=== PATIENT | female | born 1935 | race Caucasian/White ===

== ENCOUNTER 2018-09-30 15:45 | Inpatient (IN) | payer MEDICARE, MEDICAID ==
[~2018-09-30] VITALS: Ht 162.5 cm; Wt 73.5 kg
--- NOTE | ~2018-09-30 | PR ---
[place], [place] PROGRESS NOTE NAME: PARVEEN SAMPSON UNIT #: [id number] ROOM: 315 DOCTOR: CELSA SEALS MD BIRTHDATE: [birth year] DOS: 10/06/2018 CHIEF COMPLAINT: "Oh, Hi there! I'm feeling well, thank you." SUMMARY OF THE VISIT: The patient was interviewed at the dining table. She had already eaten her breakfast and was sitting there with several female peers. She stopped and engaged in conversation with me very readily, smiling as I approached, and stating that she is feeling well, that she is sleeping well, eating well and notes no problems. She was pleasant for the most part. I also did not see any sedation, somnolence, extrapyramidal symptoms or tardive dyskinesia. MENTAL STATUS: She remains alert and oriented to self, possibly place, not to time. Mood does seem to be euthymic. Affect more appropriate. There is no kang, hypomania or psychosis noted. Short term memory remains problematic. PLAN: I will maintain her current psychotropic regimen, continue to engage her in individual and dale milieu activity, returning her then to the least restrictive environment when psychiatrically stable. CELSA SEALS MD CM:PNTRANS [phone] CELSA SEALS MD 10/07/18 0001 interface
--- NOTE | ~2018-09-30 | PR ---
[place], [place] PROGRESS NOTE NAME: PARVEEN SAMPSON UNIT #: [id number] ROOM: 315 DOCTOR: CELSA SEALS MD BIRTHDATE: [birth year] DOS: 10/05/2018 CHIEF COMPLAINT: "Good morning." SUMMARY OF THE VISIT: The patient was interviewed as she was resting in bed. She was lying there with her eyes closed, but when I called her name, she opened her eyes and engaged in brief superficial conversation, reporting no problems, having reported good sleep and good appetite. Otherwise, she was pleasantly confused. Nursing staff and aids note that the patient does have a chipped tooth. MENTAL STATUS: She is alert and oriented to person, possibly place, although that is doubtful, not to time. Mood does seem to be trending more towards euthymia. Affect is more appropriate. There is no kang, hypomania or psychosis. Short term memory remains poor. No tardive dyskinesia, extrapyramidal symptoms, sedation or somnolence persist. PLAN: I will maintain her current psychotropic regimen, continue to engage in individual and dale milieu activity with the plan to return to the least restrictive environment. We will also obtain a dental consult to evaluate the broken tooth. CELSA SEALS MD CM:PNTRANS [id number] CELSA SEALS MD 10/06/18 0024 interface
--- NOTE | ~2018-09-30 | PR ---
[place], [place] PROGRESS NOTE NAME: PARVEEN SAMPSON UNIT #: [id number] ROOM: 315 DOCTOR: CELSA SEALS MD BIRTHDATE: [birth year] DOS: 10/10/2018 INTERVAL NOTE CHIEF COMPLAINT: "Oh, is it morning now?" SUMMARY OF THE VISIT: The patient was interviewed as she was resting quietly in her bed. She engaged readily in brief conversation, smiling as I approached. She voiced no complaints, did state that she was ready to get up having slept well and is ready for breakfast. MENTAL STATUS: She is alert and oriented to person, possibly place, although this seems to be evident at this time, not to time. Mood does seem to be more euthymic. She is less fretful, less anxious and less labile. Overall, she is tolerating the medicines well and I see no tardive dyskinesia, extrapyramidal symptoms, sedation or somnolence. Short-term memory continues to have gaps. PLAN: I will maintain her current psychotropic regimen, continue to engage in individual and dale milieu activity with the plan to return to the least restrictive environment when psychiatrically stable. CELSA SEALS MD CM:PNTRANS [id number] CELSA SEALS MD 10/10/18 1451 interface
--- NOTE | ~2018-09-30 | PR ---
[place], [place] PROGRESS NOTE NAME: PARVEEN SAMPSON UNIT #: [id number] ROOM: 315 DOCTOR: GAURAV WORKMAN CNP BIRTHDATE: [birth year] DOS: 10/04/2018 CHIEF COMPLAINT: "We are jeffery that we do not know what we are saying." SUMMARY OF VISIT: The patient was interviewed as she sat in the group room, interacting with her peer. She engaged readily in conversation with me. The patient reports that she slept well and that she is happy. Her appetite is good. Staff reports that the patient has been euphoric and has exhibited no behaviors. She has been cooperative. MENTAL STATUS EXAMINATION: The patient is alert and oriented to herself. No overt kang or hypomania noted. She is pleasant and cooperative. No delusions or paranoia noted. No psychotic symptoms noted. No auditory or visual hallucinations noted. Her mood is euthymic. Affect is appropriate. PLAN: We will continue the patient's medications as prescribed. Continue to monitor for any side effects. Continue to encourage the patient to engage in individual and dale milieu activity. Continue fall and safety precautions. Plan is to return the patient to the least restrictive environment when she is considered psychiatrically stable. Gaurav Workman CNP CM:PNTRANS [phone] GAURAV WORKMAN CNP 10/04/18 2250 interface
--- NOTE | ~2018-09-30 | PR ---
[place], [place] PROGRESS NOTE NAME: PARVEEN SAMPSON UNIT #: [id number] ROOM: 315 DOCTOR: CELSA SEALS MD BIRTHDATE: [birth year] DOS: 10/09/2018 CHIEF COMPLAINT: "Oh Hi there." SUMMARY OF THE VISIT: The patient was interviewed as she was sitting, reading a book. She had already completed her breakfast. As I approached, she smiled readily and reached over to touch my hand. She voiced no complaints, stating that she is feeling well. She is sleeping better and eating well. Nurses do report some sundowning behavior in the evening, but is at this point, redirectable. We will monitor this closely over the weekend to see if we need to treat, so that we can make her transition back into long-term care successful. MENTAL STATUS: The patient is alert and oriented to person, place, but not to time. Mood does seem to be trending towards euthymia. Affect is more appropriate. There is no kang, hypomania or psychosis. She does process conversation slowly and short term memory continues to be problematic. PLAN: I will maintain her current psychotropic regimen, engage in individual and dale milieu activity, returning to the least restrictive environment when stable. CELSA SEALS MD CM:PNTRANS [id number] CELSA SEALS MD 10/09/18 1342 interface
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
--- NOTE | ~2018-09-30 | PR ---
[place], [place] PROGRESS NOTE NAME: PARVEEN SAMPSON UNIT #: [id number] ROOM: 315 DOCTOR: GAURAV WORKMAN CNP BIRTHDATE: [birth year] DOS: 10/03/2018 CHIEF COMPLAINT: "I'm just fine." SUMMARY OF VISIT: The patient was interviewed as she sat in the dining room, participating in activities. She reports that she slept well and that she enjoyed her breakfast. Staff reports that the patient continues to be combative at times followed by episodes of being pleasant due to increased agitation. She did have to be medicated with p.r.n. Ativan twice yesterday. MENTAL STATUS EXAMINATION: The patient is alert and oriented to herself. She was pleasant and cooperative with me. No overt kang or hypomania noted. No delusions or paranoia noted. No psychotic symptoms noted. No auditory or visual hallucinations noted. Her mood was calm. No agitation or aggression noted. Affect was congruent with mood. Short and long-term memory is somewhat impaired. PLAN: The patient's Neurontin level is still pending. I will increase Invega to 6 mg a day to try to decrease the agitation. We will monitor for effectiveness and side effects of the medication. Encourage the patient to continue participating in dale and milieu activity. Continue fall and safety precautions. Plan is to return the patient to the least restrictive environment when she is considered psychiatrically stable. Gaurav Workman CNP CM:PNTRANS [phone] GAURAV WORKMAN CNP 10/03/18 181 interface
--- NOTE | ~2018-09-30 | PR ---
[place], [place] PROGRESS NOTE NAME: PARVEEN SAMPSON UNIT #: [id number] ROOM: 315 DOCTOR: CELSA SEALS MD BIRTHDATE: [birth year] DOS: 10/11/2018 CHIEF COMPLAINT: "Oh, hi there honey." SUMMARY OF THE VISIT: The patient was interviewed in the dining area where she was sitting with some female peers, engaging in pleasant conversation. She smiled readily as I approached and greeted me appropriately. She voiced no complaints otherwise. She reports good sleep and appetite and is anxious to be able to start thinking about going home. MENTAL STATUS: She is alert and oriented to person, possibly place, not to time. Mood does seem to be trending towards euthymia. Affect is more appropriate. There is no kang or hypomania. There are no gross psychotic symptoms. Short term memory remains very poor. PLAN: I will maintain her current psychotropic regimen. I will order Ativan p.r.n., should she require intervention. Engage in individual and dale milieu activity, returning to the least restrictive environment when stable. CELSA SEALS MD CM:PNTRANS [phone] CELSA SEALS MD 10/12/18 0030 interface
--- NOTE | ~2018-09-30 | PR ---
[place], [place] PROGRESS NOTE NAME: PARVEEN SAMPSON UNIT #: [id number] ROOM: 315 DOCTOR: CELSA SEALS MD BIRTHDATE: [birth year] DOS: 10/13/2018 INTERVAL NOTE CHIEF COMPLAINT: "Oh, "I didn't sleep at all last night, doctor." SUMMARY OF THE VISIT: The patient was interviewed as she was sitting quietly in the dining room. She was much more subdued than she had been previously where she has been very animated. She did very quickly state that she did not sleep and is feeling very tired. She could not state any reason why she did not sleep, but just stated that she was unable to. We discussed me adding a sleeping agent and she nodded in approval. MENTAL STATUS: She is alert and oriented to person, possibly place, not to time. Mood does seem to be relatively euthymic. Affect is appropriate. There is no kang or hypomania noted. There are no auditory or visual hallucinations. No delusions, no paranoia. Short-term memory is poor. PLAN: I will add Rozerem 8 mg at bedtime straight in order to aid sleep with a non-addicting sleep aid. We will monitor and support. CELSA SEALS MD CM:PNTRANS [id number] CELSA SEALS MD 10/13/18 1631 interface
--- NOTE | ~2018-09-30 | PR ---
[place], [place] PROGRESS NOTE NAME: PARVEEN SAMPSON UNIT #: [id number] ROOM: 315 DOCTOR: CELSA SEALS MD BIRTHDATE: [birth year] DOS: 10/02/2018 INTERVAL NOTE CHIEF COMPLAINT: "Oh, "I am just fine doctor, thank you for asking." SUMMARY OF THE VISIT: The patient was interviewed as she was sitting with many peers at the dining table. She stopped and engaged in bright, pleasant conversation with me. She remains pleasantly confused. There was no agitation or aggression, no mood lability noted and she seems to be tolerating the current medication regimen well without sedation or somnolence. There is no tardive dyskinesia or extrapyramidal symptoms as well. MENTAL STATUS: She remains alert and oriented to person, unclear place, certainly not time. Mood does seem to be trending towards euthymia. Affect is more appropriate. There is no kang or hypomania noted. There are no gross psychotic symptoms noted. Short term memory is very problematic and she has a great deal of processing difficulty. PLAN: I will check a Neurontin level in the a.m. to ensure that it is therapeutic. I will discontinue her straight hydroxyzine at this point to simplify her drug regimen, engage in individual and dale milieu activity, returning to the least restrictive environment when psychiatrically stable. CELSA SEALS MD CM:PNTRANS [phone] CELSA SEALS MD 10/02/182009 interface
--- NOTE | ~2018-09-30 | PR ---
[place], [place] PROGRESS NOTE NAME: PARVEEN SAMPSON UNIT #: [id number] ROOM: 315 DOCTOR: CELSA SEALS MD BIRTHDATE: [birth year] DOS: 10/12/2018 CHIEF COMPLAINT: "Oh, good morning, thank you for breakfast." SUMMARY OF THE VISIT: The patient was interviewed. She was eating breakfast. The aide next to her said that this was her second helping. She smiled and joked with me as I approached. She offered no other complaints. She was alert and bright. There was no sedation or somnolence noted. MENTAL STATUS: She is alert and oriented to person, place, but not time. Mood seems to be strongly trending towards euthymia. Affect is much more appropriate. There is no kang, hypomania or psychosis. Short term memory continues to have gaps, otherwise she is intact. PLAN: I will go ahead and maintain her current psychotropic regimen, engage in individual and dale milieu activity, returning to the least restrictive environment when psychiatrically stable. CELSA SEALS MD CM:PNTRANS [phone] CELSA SEALS MD 10/12/18 2213 interface
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
--- NOTE | ~2018-09-30 | PR ---
[place], [place] PROGRESS NOTE NAME: PARVEEN SAMPSON UNIT #: [id number] ROOM: 315 DOCTOR: CELSA SEALS MD BIRTHDATE: [birth year] DOS: 10/07/2018 CHIEF COMPLAINT: "Oh, when do I get to go home." SUMMARY OF THE VISIT: The patient was interviewed in the dining area where she was sitting with many female peers. She smiled as I approached and engaged readily in conversation. She was even spontaneous with me as I approached, wishing me a good morning. She reports that she is sleeping well and feeling better. Nurses report that overall she has a good day, but by midday, she starts complaining consistently of significant low back pain. The Lidoderm patch does not seem to be effective at relieving her pain. There has been no agitation or aggression and minimal mood lability noted. MENTAL STATUS: She is alert and oriented to person, place, not to time. Mood does seem to be more euthymic. Affect is more appropriate. There is no kang or hypomania. No gross psychosis. Short term memory continues to be problematic. PLAN: I will discontinue her Lidoderm patch in lieu of Zostrix high potency cream t.i.d. I will lower her Invega from 6 to 3 mg in the morning. Given the fact that she does seem to be improved, I want to limit the possibility of her developing any extrapyramidal symptoms or tardive dyskinesia. We will monitor and support. CELSA SEALS MD CM:PNTRANS 0 30 CELSA SEALS MD 10/07/182129 interface
--- NOTE | ~2018-09-30 | PR ---
[place], [place] PROGRESS NOTE NAME: PARVEEN SAMPSON UNIT #: [id number] ROOM: 315 DOCTOR: CELSA SEALS MD BIRTHDATE: [birth year] DOS: 10/08/2018 CHIEF COMPLAINT: "Oh, I am fine, thank you, honey." SUMMARY OF THE VISIT: The patient was interviewed as she had just finished her breakfast. She engaged readily in conversation. She reported the breakfast was good. She slept well and overall she has been pleasantly confused. Her agitation and aggression that was so prevalent early on seems to have dissipated. MENTAL STATUS: She is alert and oriented to person, possibly place, not to time. Mood does seem to be trending towards euthymia. Affect is more appropriate. There is no kang, hypomania or psychosis. Short term memory remains very problematic. PLAN: I will continue her current psychotropic regimen, engage in individual and dale milieu activity, returning to the least restrictive environment when stable. CELSA SEALS MD CM:PNTRANS [id number] [id number] CELSA SEALS MD 10/08/18 1048 interface
--- NOTE | ~2018-09-30 | PR ---
[place], [place] PROGRESS NOTE NAME: PARVEEN SAMPSON UNIT #: [id number] ROOM: 315 DOCTOR: CELSA SEALS MD BIRTHDATE: [birth year] DOS: 10/15/2018 INTERVAL NOTE CHIEF COMPLAINT: "Oh, hi there honey." SUMMARY OF THE VISIT: The patient was interviewed as she was finishing her breakfast. She engaged readily in conversation. She voiced no complaint this morning. She smiled readily and overall was pleasant and cooperative. Her responses still tend to be short, simple, at times inappropriate, but she smiled readily. MENTAL STATUS: She is alert and oriented to person, most likely place, not to time. Mood does seem to be trending towards euthymia. Affect is more appropriate. There is no kang, hypomania or psychosis. She does process conversation slowly and short-term memory continues to be problematic. PLAN: I will maintain her current psychotropic regimen, continue to engage in individual and dale milieu activity, returning to the least restrictive environment when psychiatrically stable. CELSA SEALS MD CM:PNTRANS [id number] CELSA SEALS MD 10/15/18 1419 interface
[2018-09-30] MEDS ORDERED: CYMBALTA60 MG PO (17:49)
[2018-09-30] MEDS ORDERED: MEMANTINE HCL10 MG PO (17:50)
[2018-09-30] MEDS ORDERED: RISPERDAL0.5 MG PO (17:51)
[2018-09-30] MEDS ORDERED: B121000 MCG/1 IM (17:53)
[2018-09-30] MEDS ORDERED: NAPROXEN500 MG PO (17:54)
[2018-09-30] MEDS ORDERED: GLUCOSE33 GM PO (17:55)
[2018-09-30] MEDS ORDERED: VENTOLIN 02.5 MG/3 M INH (17:56)
[2018-09-30] MEDS ORDERED: ALENDRONATE SOD70 M1 PO (17:57)
[2018-09-30] MEDS ORDERED: ASCORBIC ACID500 M2 PO (17:58)
[2018-09-30] MEDS ORDERED: ARTIFICIAL TEAR15 M9 OP (17:58)
[2018-09-30] MEDS ORDERED: ANTACID200 MG PO (18:01)
[2018-09-30] MEDS ORDERED: CLARITIN10 MG PO (18:02)
[2018-09-30] MEDS ORDERED: VITAMIN D350000 UNIT PO (18:02)
[2018-09-30] MEDS ORDERED: ALLERGY MEDICAT25 MG PO (18:04)
[2018-09-30] MEDS ORDERED: ADMELOG100 UNIT/1 SQ (18:05)
[2018-09-30] MEDS ORDERED: HYDROXYZINE HCL25 MG PO (18:06)
[2018-09-30] MEDS ORDERED: LIDODERM1 EACH T (18:06)
[2018-09-30] MEDS ORDERED: MELATONIN10 M2 PO (18:07)
[2018-09-30] MEDS ORDERED: LOSARTAN POTAS100 M1 PO (18:07)
[2018-09-30] MEDS ORDERED: METOPROLOL25 MG PO (18:08)
[2018-09-30] MEDS ORDERED: NEURONTIN400 MG PO (18:09)
[2018-09-30] MEDS ORDERED: NITROGLYCERIN0.4 MG SL (18:10)
[2018-09-30] MEDS ORDERED: NEURONTIN800 MG PO (18:10)
[2018-09-30] MEDS ORDERED: AMLODIPINE BESY10 MG PO (18:11)
[2018-09-30] MEDS ORDERED: PLAVIX75 M1 PO (18:13)
[2018-09-30] MEDS ORDERED: RIVASTIGMINE TAR6 M1 PO (18:14)
[2018-09-30] MEDS ORDERED: PROBIOTIC250 MG PO (18:14)
[2018-09-30] MEDS ORDERED: TRAD5TAB1 PO (18:15)
[2018-09-30] MEDS ORDERED: TRESIBA100 UNIT/1 SQ (18:16)
--- NOTE | 2018-09-30 18:57 | NUR ---
PARVEEN SAMPSON a 82 year old F admitted via wheel chair from the EMERGENCY ROOM as a voluntary BY POA admission. Arrived on unit at 1857. ALLERGIES: HYDROCODONE, LISINOPRIL, SUVOREXANT, DILAUDID, PHENERGAN. Vital signs are: 97.7-88-20-114/60 SPO2 100%RA . The client'S POA VERBALLY CONSENTED TO the following forms with stated understanding: Authorization For The Release of Medical Information, Clothing List, Consent to Voluntary Admission and Hospitalization, Consent and Release Forms/Receipt of Rights, Acknowledgement of Advance Directive Information, Behavioral Health Consent Form, and Informed Consent of Medications. Admitted under the services of Dr. ARNEL MARTINEZ,[facility]. A search was conducted and hazardous articles were removed. Client was oriented to the unit. CARLOS HARMAN
[2018-09-30 19:46] VITALS: BP 114/60
[2018-09-30 20:00] VITALS: BP 114/60
--- NOTE | 2018-09-30 20:23 | NUR ---
DR. WHITTEN ON UNIT AT THIS TIME TO SEE PATIENT, UPDATE PROVIDED.
--- NOTE | 2018-09-30 21:42 | NUR ---
RADIOLOGY ON UNIT TO DO CHEST X-RAY AT THIS TIME. PATIENT TOLERATED PROCEDURE WELL.
--- NOTE | 2018-09-30 22:44 | NUR ---
PER RUKHSANA CARDONA TO CHANGE ROUTINE NEBS TO PRN.
--- NOTE | 2018-10-01 01:10 | NUR ---
P-CONFUSION I-ASSESS ORIENTATION, MOOD, AND BEHAVIOR. REORIENT AND REDIRECT NEEDED. PROVIDE 1:1 FOR PATIENT TO VOICE FEELINGS. ENCOURAGE MEDICATION COMPLIANCE AND EDUCATE. R-PATIENT ALERT TO SELF, CONFUSED IN ALL OTHER AREAS. MOOD HOPELESS/HELPLESS, ANXIOUS AT TIMES. PT UNABLE TO PARTICIPATE IN ADMISSION ASSESSMENT DUE TO COGNITON, INFORMATION PROVIDED FROM FACILITY. PT COOPERATIVE WITH HANDS ON CARE WITH OUT DIFFICULTY. NO AGITATION OR IRRITBILITY NOTED AT THIS TIME. COMPLIANT WITH HS SNACK AND HS MEDICATION PASS, UNABLE TO EDUCATE DUE TO COGNITON. DENIES SI/HI AND HALLUCINATIONS, NO NOTED RESPONDING TO INTERNAL STIMULI. NO PARANOIA/DELUSIONS OBSERVED. NO PHYSICAL COMPLAINTS VOICED. SKIN ASSESSMENT COMPLETED, MULTIPLE SCABBED AREAS OBSERVED AND NAIL DISOCOLORATION ON RIGHT GREAT TOE AND LEFT THIRD GREAT TOE. GAIT STEADY WITH ASSIST, FALL PRECAUTIONS INITATED AND CONTINUED. PATIENT CURRENTLY LAYING DOWN WITH EYES CLOSED, RESPIRATIONS EASY AND REGULAR, NO SIGNS OR SYMPTOMS OF DISTRESS NOTED. P-REORIENT AND REDIRECT NEEDED. PROVIDE 1:1 FOR PATIENT TO VOICE FEELINGS. ENCOURAGE MEDICATION COMPLIANCE. MAINTAIN Q 15 MIN CHECKS.
--- NOTE | 2018-10-01 05:51 | NUR ---
PATIENT OBSERVED ON Q 15 MIN CHECKS TO HAVE SLEPT 6 HOURS WITH NO AWAKENINGS OR SIGNS AND SYMPTOMS OF DISTRESS NOTED.
--- NOTE | 2018-10-01 06:38 | NUR ---
MADE AWARE OF CRITICAL BSG 27 AND PT AWAKE, TALKING, EATING AND DRINKING. STATES CONTINUE TO ENCOURAGE PO INTAKE.
--- NOTE | 2018-10-01 07:01 | NUR ---
BSG RECHECKED, RESULT OF 102. NO SIGNS OR SYMPTOMS OF DISTRESS NOTED.
[2018-10-01 07:32] LABS: THYROID STIM HORMONE (HS) 1.7 uIU/ml (0.358-4.75)
[2018-10-01 07:47] VITALS: BP 133/70
--- NOTE | 2018-10-01 08:15 | NUR ---
Treatment Plan meeting with Dr. Haq, RN, SW and Boring Machine Operator Horizontal. Plan for discharge Next week. Pt. is current resident at [facility]. Will reach out to facility today to discuss discharge Planning.
[2018-10-01 08:34] LABS: VITAMIN D, 25-HYDROXY 26.6 ng/mL (30-100)
--- NOTE | 2018-10-01 08:48 | NUR ---
Nursing screen received and Occupational Therapy referral received. Thank you. Breanna Putnam OTR/l
--- NOTE | 2018-10-01 11:01 | NUR ---
Call Placed to [facility], left voice Message for Cristopher White in admissions to discuss discharge Planning.
--- NOTE | 2018-10-01 11:30 | NUR ---
DR. DIAZ ON UNIT TO ASSESS PATIENT.
--- NOTE | 2018-10-01 13:09 | NUR ---
SPEECH PATHOLOGY Evaluation completed as per orders. Patient was admitted from skilled nursing after experiencing depression, agitation and agression. Medical history is significant for cariomegaly, DM, COPD, HTN, CAD and spinal stenosis. Patient has reportedly been confused. Patient was seen during lunchtime meal with regular diet and thin liquid. She was able to feed herself and displayed no overt difficulty. She was alert and verbal. She was oriented only to person. Short term memory was poor. Patient's speech was intelligible but limited to short phrases in response to questions. She did not initiate any conversation. Follow up therapy is recommended to improve cognitive functioning to improve safety and independence in new environment. Results and eulalia. were shared with patient's nurse who verbalized understanding. Refer to report in [employer] for further information. Thank you for this referral. EMILY VILLATORO MSCCC-PCAT INSTRUCTOR
--- NOTE | 2018-10-01 14:41 | NUR ---
PATIENT IS ALERT AND ORIENTED TO PERSON ONLY WITH CONFUSION; ABLE TO VOICE NEEDS. MOOD IS STABLE, DENIES ANY HALLUCINATIONS, DELUSIONS, HI/SI OR PAIN. 1 PERSON ASSIST WITH ACTIVITIES OF DAILY LIVING, CONTINENT OF BOWEL AND BLADDER. MEDICATION COMPLAINT. Q 15 MINUTE SAFETY CHECKS MAINTAINED. INTERACTIVE WITH STAFF AND PARTICIPATED IN ACTIVITIES. AMBULATES WITH ASSIST. NO AGGRESSION NOTED. CONTINUE TO MONITOR FOR AGGRESSION AND MEDICAITON COMPLAINCE. PROVIDE ONE ON ONE AND REDIRECTION NEEDED.
--- NOTE | 2018-10-01 15:55 | NUR ---
Unable to complete psychosocial assessment with pt due to confusion. Unable to reach pt's daughter/DPOA-HC Ludy Page. Will attempt at a different time.
--- NOTE | 2018-10-01 16:20 | NUR ---
Occupational Therapy evaluation completed on 3 with full eval to follow. Precautions include fall risk, 3N unit precautions,inconsistant behavior, poor safety awareness, unsteady in standing,moderate complexity level 01666 via chart review, testing and evalution Recommend OT per POC and return to alf per d/c. Thank you for this referral. Breanna Putnam OTR/L
--- NOTE | 2018-10-01 17:24 | NUR ---
PATIENT COMPLAINING OF HAVING A HEADACHE. PRN TYLENOL 650MG PO GIVEN.
--- NOTE | 2018-10-01 18:24 | NUR ---
PRN TYLENOL EFFECTIVE, NO LONGER HAVING PAIN.
--- NOTE | 2018-10-01 18:45 | NUR ---
PATIENT PICKING AT CHEST, SCABBED AREA, OPTIFOAM DRESSING APPLIED FOR SKIN PROTECTION.
[2018-10-01 20:00] VITALS: BP 110/59
--- NOTE | 2018-10-01 22:00 | NUR ---
P-CONFUSION, AGITATION. PAIENT ALERT WITH CONFUSION. PATIENT WITH SHORT TERM AND HOT OILER MEMORY DEFICITS. PATIENT WITH NO RESPIRATORY DISTRESS. PATIENT WITH NO SUICIDAL OR HOMICIDAL IDEATIONS. PATIENT WITH NO HALLUCINATIONS OR DELUSIONS. PATIENT AGITATED AND STRIKING OUT AT STAFF AT TIMES. I-REDIRECTION WITH 1:1 THERAPEUTIC INTERVENTIONS AND PRESENT REALITY. EDUCATED AND ENCOURAGE MEDICATION COMPLIANCE R- PATIENT MEDICATION COMPLIANT WITH HS MEDICATIONS. PATIENT AMBULATING TO BATHROOM WITH ASSIST X 1. PATIENT CONTINENT OF BLADDER AT THIS TIME. PATIENT SHOWERED THIS SHIFT. PATIENT REFUSING TO WASH HAIR AT THIS TIME. PATIENT REDIRECTABLE DURING EPISODES OF AGITATION WITH STAFF WITH NONPHARMACOLOGICAL INTERVENTIONS USED. PATIENT COMPLAINT OF LOWER BACK PAIN AND MEDICATED WITH TYLENOL 650MG WITH EFFECTIVE RESULTS P-CONTINUE TO ENCOURAGE MEDICATION COMPLIANCE, CONTINUE TO PRESENT REALITY, ENCOURAGE GROUP THERAPY WHILE AWAKE
--- NOTE | 2018-10-02 02:20 | NUR ---
24 HR chart check completed.
--- NOTE | 2018-10-02 06:54 | NUR ---
PATIENT SLEPT 7-8 HOURS OF UNINTERRUPTED SLEEP THROUGHOUT SHIFT. Q 15 MINUTE CHECKS MAINTAINED
--- NOTE | 2018-10-02 07:45 | NUR ---
OT NOTE Pt was seen this A.M. 1:1 for 15 minute OT session with ELECTRICAL SERVICE TECHNICIAN and nursing staff present for observation only. Upon arrival pt was sitting semi reclined in susanne chair in the dining room. Pt identified by name and and had complaints of "alot" of low back pain. Pt completed functional mobility to her bathroom with Mary BUSCH where she transferred on/off standard commode with Mary due to poor safety alignement with commode and rising off low surface. Pt then stood sink side while washing her hands with CGA. Functional mobility completed back to her susanne chair with Mary BUSCH. There she was left sitting upright in dining room with body alarm on for safety and under [facility] staff supervision. Continue with rec D/C plan to return to LTC. DEANA Evans/Patricia
[2018-10-02 08:13] VITALS: BP 140/62
--- NOTE | 2018-10-02 10:23 | NUR ---
SPEECH THERAPY Patient seen for treatment this date in group room. Patient friendly and pleasant throughout session. Patient only oriented to self and not able to identify date or location. Patient appeared confused with verbose and off topic responses. Targeted goals include improve orientation to current enviornment with use of external aids, improve recent memory with aids and cues, improve functional problem solving skills, and name 5 items in a given category. Clinian educated patient to external aids in the room which include daily schedule, clock, day of week, date, and names of nurses. When asked what time it was, patient able to identify clock in the room and state the time across each trial. Patient not able to state day of week, date, or name of a nurse correctly with all trials, however patient correctly identified location on wall. Patient did not correctly identify activity schedule when asked where she could find what time lunch, snack, etc. were. When asked if she were to need assistance with the bathroom or if she needed a blanket or help what could she do, patient stated that she could scream. When asked to identify a name of somebody to assist her, patient did identify names of nurses or aids that are listed on wall. Patient able to improve orientation to time with use of clock, however orientation and recent memory for use of external aids to identify schedule, day of week, and date poor and requiring max cues. Patient not able to provide 1 item in verbally presented category. Following clinician model, and max verbal cues to describe item, patient with off topic responses and not able to identify correct item in category. Visuals may help to improve patient function and increase independence in goals. Continue toward current goals and treatment plan. Minal Quigley MA CF-COKE PRODUCTION HEATER
--- NOTE | 2018-10-02 11:00 | NUR ---
Treatment Plan meeting with Dr. Haq, RN, SW and Sales Administration Specialist. Plan for discharge next week. Pt. is LTC at [facility] and will return at discharge.
--- NOTE | 2018-10-02 14:25 | NUR ---
Pt was pleasantly confused this morning when interacting with this policy writer sales and two of pt's female peers. However, when pt saw a male pt bending down to get something from beside his chair, pt commented, "What is he doing? I'll take him out if I have to. I can and I will." Pt then immediately returned to being pleasant with this social worker delinquency prevention and pt's peers.
--- NOTE | 2018-10-02 15:20 | NUR ---
Clinical updates faxed to [facility] Attn:
--- NOTE | 2018-10-02 15:41 | NUR ---
Left a voicemail message for pt's daughter Ludy Page requesting a return call to gather further pt information and to offer to schedule a family meeting. Await a return call.
--- NOTE | 2018-10-02 16:19 | NUR ---
PHYSICAL THERAPY Patient evaluated on 3, full evaluation to follow. Continue with PT as per plan of care with fall, ALARM, UNIT THREE and acute debility precautions. Return to prior facility. PAtient is moderate complexity via chart review, tests and evaluation: 21253. Thank you for this referral. Sofía Wise,PT
--- NOTE | 2018-10-02 16:49 | NUR ---
PATIENT IS ALERT AND ORIENTED TO SELF AND HANDS ON CARE WITH CONFUSION. LONG/SHORT TERM MEMORY DEFICITS NOTED. MOOD IS STABLE. DENIES ANY HALLUCINATIONS, DELUSIONS, HI/SI OR PAIN. MEDICATION COMPLAINT. Q 15 MINUTE SAFETY CHECKS MAINTAINED. 1 PERSON ASSIST WITH ACTIVITIES OF DAILY LIVING, CONTINENT OF BOWEL AND BLADDER. SET UP FOR MEALS, INTAKES ARE GOOD WITH ADEQUATE FLUIDS. INTERACTIVE WITH STAFF. NO AGGRESSION OBSERVED. CONTINUE TO MONITOR FOR AGGRESSION; PROVIDE ONE ON ONE AND REDIRECTION NEEDED.
--- NOTE | 2018-10-02 16:55 | NUR ---
PHYSICAL THERAPY Nursing screen received. PT orders also received. Thank you. Sofía Wise,PT
--- NOTE | 2018-10-02 18:05 | NUR ---
P: PATIENT IRRITABLE, ESCULATING, YELLING AT STAFF, DISRUPTING TO MILIEU DEMENDING TO LEAVE, ATTEMPTING TO EXIT SEEK; UNABLE TO REDIRECT FROM DOOR. I: DIRVERSIONAL CONVERSATION WITH NURSE, WALKED WITH PATIENT IN CHAIR IN HALLWAY, ASSISTED TO BATHROOM FOR TOILETING NEEDS, MUSIC THERAPY PROVIDED. AMBULATED WITH PATIENT; ONE ON ONE PROVIDED. R: NOT ABLE TO REDIRECT PATIENT, INEFFECTIVE P: PRN ATIVAN 1MG IM TO LEFT DELTOID. PATIENT TOLERATED WELL; ASSISTED TO QUIET ROOM WITH SUPERVISION.
--- NOTE | 2018-10-02 19:05 | NUR ---
PATIENT UP IN NAHOMY CHAIR, WITH RAISED VOICE WITH STAFF, PRN ATIVEN MILDLY EFFECTIVE, CONTINUE TO MONITOR.
[2018-10-02 20:00] VITALS: BP 120/71
--- NOTE | 2018-10-02 20:10 | NUR ---
DR DOUGHERTY UPDATED ABOUT PATIENT ACCUCHECK RESULT. THIS NURSE TO ADMINISTER HS DIABETIC MEDICATIONS AND WILL FOLLOW UP WITH
--- NOTE | 2018-10-02 22:50 | NUR ---
P-CONFUSION, AGITATION, YELLING OUT. PAIENT ALERT WITH CONFUSION. PATIENT WITH SHORT TERM AND [facility] MEMORY DEFICITS. PATIENT WITH NO RESPIRATORY DISTRESS. PATIENT WITH NO SUICIDAL OR HOMICIDAL IDEATIONS. PATIENT WITH NO HALLUCINATIONS OR DELUSIONS. PATIENT AGITATED AND STRIKING OUT AT STAFF AT TIMES. PATIENT YELLING OUT INTERMITTENTLY AT HS. I-REDIRECTION WITH 1:1 THERAPEUTIC INTERVENTIONS AND PRESENT REALITY. EDUCATE AND ENCOURAGE MEDICATION COMPLIANCE R- PATIENT MEDICATION COMPLIANT WITH HS MEDICATIONS. PATIENT AMBULATING TO BATHROOM WITH ASSIST X 1. PATIENT CONTINENT OF BLADDER AT THIS TIME. PATIENT NOT REDIRECTABLE DURING EPISODES OF AGITATION. MEDICATED PATIENT WITH ATIVAN 1MG PO WITH EFFECTIVE RESULTS AT THIS TIME. PATIENT COMPLAINT OF LOWER BACK PAIN AND MEDICATED WITH TYLENOL 650MG WITH EFFECTIVE RESULTS AT THIS TIME. BLOOD SUGARS BEING CHECKED THROUGHOUT HS. RESULTS DECREASING FROM INITIAL RESULTS AFTER INSULIN GIVEN. P-CONTINUE TO ENCOURAGE MEDICATION COMPLIANCE, CONTINUE TO PRESENT REALITY, ENCOURAGE GROUP THERAPY WHILE AWAKE
--- NOTE | 2018-10-03 00:06 | NUR ---
24 HR chart check completed.
--- NOTE | 2018-10-03 05:06 | NUR ---
PATIENT SLEPT >5 HOURS OF INTERRUPTED SLEEP THROUGHOUT SHIFT. Q 15 MINUTE CHECKS MAINTAINED
[2018-10-03 07:50] VITALS: BP 142/64
--- NOTE | 2018-10-03 12:00 | NUR ---
AM GROUP/EXERCISES/GAMES PT ATTENDED GROUP AND PARTICIPATED TO BEST OF ABILITY. PT PLEASANTLY CONFUSED. PT DID NOT BECOME AGITATED AT THIS TIME AND WILL COTNINUE TO ATTENDF AND PARTICIPATE IN FUTURE GROUP SESSIONS.
--- NOTE | 2018-10-03 12:08 | NUR ---
PT BLOOD SUGAR 404 DR. CABALLERO NOTIFIED
--- NOTE | 2018-10-03 15:12 | NUR ---
PT CONTINUES WITH POOR COGNITION, PLEASANT AND COOPERATIVE WITH ALL CARE TODAY, SHE PARTICIPATED IN GROUP AND HAS BEEN MEDICATION COMPLIANT THROUGHOUT THE DAY. SMILES WHEN SPOKED TO, UNABLE TO FOLLOW DIRECTION WITH STAFF EXCEPT SHORT SIMPLE REQUESTS. NO SI/HI OR DELUSIONS NOTED TODAY, 15 MIN CHECKS AND FALL PRECAUTIONS MAINTAINED.
--- NOTE | 2018-10-03 16:50 | NUR ---
PM GROUP/INDIANA ZACARIAS/LEISURE SKILLS PT ATTENDED AND PARTICIPATED FOR A BRIEF PERIOD LOOKING AT A BOOK. PT EVENTUALLY FELL ASLEEP IN RECLINER TO NOT WAKE REMAINDER OF GROUP. PT WILL CONTINUE TO ATTEND GROUP AND WILL PARTICIPATE TO BEST OF PT ABILITY.
[2018-10-03 19:58] VITALS: BP 116/68
--- NOTE | 2018-10-03 21:44 | NUR ---
P---CONFUSION. I--REORIENTED TO PLACE AND TIME. EDUCATED ON MEDICATION DURING MEDICATION PASS. UNABLE TO HAVE FULL 1:1 DUE TO COGNITION. R--OH I HAD A GOOD DAY. RESPONDED I AM WERE I AM AT. I DON'T LIKE THAT MEDICINE TASTE. P-REORIENT WITH EACH INTERACTION. MONITOR Q 15 MINUTES AND PRN FOR SAFETY.
--- NOTE | 2018-10-04 01:30 | NUR ---
BSG CHECKED. 118. CLIENT IS A BRITTLE DIABETIC.
--- NOTE | 2018-10-04 02:34 | NUR ---
24 HR chart check completed.
--- NOTE | 2018-10-04 05:40 | NUR ---
UP TO BATHROOM WITH ASSIST OF 2. ORIENTED TO SELF ONLY PER BASE LINE. SKIN WARM AND DRY. BSG DONE 66. /2 AND ORANGE JUICE PROVIDED. CLIENT ASYMPTOMATIC
--- NOTE | 2018-10-04 06:00 | NUR ---
SLEPT WELL PAST 2229. 2 AWAKENS FOR BSG AND TO VOID. ATE 1/2 SANDWICH AND ALISTAIR COTTO
[2018-10-04 07:35] VITALS: BP 118/69
--- NOTE | 2018-10-04 08:15 | NUR ---
PT AWAKE, ALERT AND VERBAL, PLEASANT, EATING BREAKFAST IN DINING ROOM WITH PEERS.
--- NOTE | 2018-10-04 09:40 | NUR ---
, , AND ON UNIT TO SEE PT AT THIS TIME, MADE AWARE BP 118/69 MANUAL, HR 65. STATES OK TO GIVE ROUTINELY ORDERED COZAAR, LOPRESSOR AND NORVASC THIS AM.
--- NOTE | 2018-10-04 12:30 | NUR ---
GAURAV JACOBO LEAD ADVISOR ON UNIT TO SEE PT AT THIS TIME, UPDATE GIVEN.
--- NOTE | 2018-10-04 15:17 | NUR ---
PRN TYLENOL 650MG PO GIVEN AT THIS TIME PER PT C/O LOW BACK PAIN NOT RATED ON PAIN SCALE, PAIN UNRELIEVED BY LIDODERM PATCH AND REPOSITIONING. WILL MONITOR FOR EFFECTIVENESS OF MEDICATION.
--- NOTE | 2018-10-04 15:39 | NUR ---
P- LABILE MOOD, RANGING FROM EUPHORIC, LAUGHING WITH ANIMATED AFFECT TO ANGRY/IRRITABLE YELLING VULGARITIES AT STAFF AND PEERS. I- ORIENTATION, MOOD AND BEHAVIOR ASSESSED. ASSESSED PT FOR SI/HI, INTENT OR PLAN. ASSESSED PT FOR S/S HALLUCINATIONS, PARANOIA AND/OR DELUSIONS. MEDICATIONS ADMINISTERED PER PHYSICIAN'S ORDERS. ASSISTANCE WITH ADL CARE PROVIDED NEEDED. ENCOURAGED PT TO ATTEND AND PARTICIPATE IN KESSLER MILIEU GROUPS AND ACTIVITIES. R- PT IS ALERT AND ORIENTED TO PERSON ONLY. CONFUSED IN ALL OTHER AREAS. ST/LT MEMORY GAPS NOTED. RESPS EASY AND EVEN ON ROOM AIR. MOOD IS LABILE, RANGING FROM EUPHORIC, LAUGHING WITH ANIMATED AFFECT TO ANGRY AND IRRITABLE, YELLING VULGARITIES AT STAFF AND PEERS. SPEECH IS WNL AND COHERENT, ABLE TO MAKE NEEDS KNOWN WITHOUT DIFFICULTY. PT DENIES SI/HI, INTENT OR PLAN. PT DENIES HALLUCINATIONS, NO RESPONSE TO INTERNAL STIMULI NOTED. NO PARANOIA OR DELUSIONS NOTED. PT IS MEDICATION COMPLIANT WITHOUT DIFFICULTY. PT ATTENDED MORNING GROUP WITHOUT DIFFICULTY. BEHAVIORS HAVE INCREASED T/O SHIFT, PT CURRENTLY YELLING OUT FOR HELP DESPITE MULTIPLE INTERVENTIONS PER PT'S REQUEST, TOLIETING PROVIDED, FOOD AND FLUIDS GIVEN, TYLENOL GIVEN FOR PAIN, REPOSITIONING PROVIDED. PT STATES "HELP ME, I'VE GOT TO GET OUT OF HERE, I DON'T KNOW WHAT TO DO!" REDIRECTION INEFFECTIVE OF THIS TIME. PT IN QUIET ROOM FOR DESTIMULATION AND DE-ESCALATION AT THIS TIME. P- PLAN TO CONTINUE CURRENT TREATMENT, CONTINUE TO MONITOR MOOD AND BEHAVIORS. PROVIDE APPROPRIATE REORIENTATION, REDIRECTION AND 1:1. CONTINUE TO ENCOURAGE MEDICATION COMPLIANCE WELL GROUP ATTENDANCE AND PARTICIPATION.
--- NOTE | 2018-10-04 16:26 | NUR ---
TYLENOL APPEARS TO HAVE BEEN EFFECTIVE, PT RESTING QUIETLY AT THIS TIME, NAPPING RECLINED IN GERICHAIR. NO FURTHER C/O PAIN AT THIS TIME.
--- NOTE | 2018-10-04 17:04 | NUR ---
PT CONTINUES TO YELL OUT FOR HELP DESPITE MULTIPLE INTERVENTIONS PROVIDED BY STAFF. PT NO LONGER COMPLAINING OF PAIN BUT CONTINUES TO YELL OUT. PT HAS BEEN TOLIETED, HAS EATEN DINNER, REPOSITIONING PROVIDED, AMBULATED WITH STAFF SHORT DISTANCES, ALL NONPHARMALOGICAL INTERVENTIONS INEFFECTIVE. PT BECOMING INCREASINGLY AGITATED AND AGGRESSIVE WITH REDIRECTION. PRN ATIVAN 1MG PO GIVEN AT 1704 FOR INCREASED ANXIETY/AGITATION. WILL MONITOR FOR EFFECTIVENESS OF MEDICATION.
[2018-10-04 20:00] VITALS: BP 109/83
--- NOTE | 2018-10-04 20:51 | NUR ---
SPOKE WITH DR Brenton KIMBLE. UPDATED ON BP 109/83. OK TO HOLD DUNIA FLORES
--- NOTE | 2018-10-04 22:31 | NUR ---
INTERACTIVE WITH PEERS AND STAFF. DID TAKE PM MEDICATION WHOLE THIS EVENING. REQUIRED STEP BY STEP GUIDENCE. C/O BACK PAIN BUT GETS NAPROSYN ROUTINE AND SHE WAS IN AGREEMENT. ATE WELL FOR SNACK. GAIT FAIR WITH STANDBY ASSISTANCE
--- NOTE | 2018-10-05 04:56 | NUR ---
24 HR chart check completed.
--- NOTE | 2018-10-05 05:15 | NUR ---
SLEPT WELL PAST 2300PM
--- NOTE | 2018-10-05 07:30 | NUR ---
OT Note Pt was seen this AM 1:1 for 18 minutes for OT session with nursing staff present for observation only. Upon arrival pt was found reclined in susanne chair in dining room. Pt was identified by name and and had no complaints at this time. Pt was taken to bed room. Pt needed contact guard assist with sit to stand from susanne chair. Contact guard required for safety reasons due to unsteady gait with functional mobility to bed. Sat down on bed with contact guard due to lower surface. Verbal prompts given to make sure legs are safetly touching bed before sitting and placing arms back for support. Dressing was completed at bedside with set up by therapist. Pt donned and doffed socks with stand by assist. She then wesley and doffed sweater with stand by assist. Pt was able to complete bed mobility consisting of sit to supine and supine to sit with stand by assist. Pt required contact guard for functional mobility to bathroom where grooming was completed consisting of washing her hands and face while standing sink side with stand by assist. Pt required min assist due to loss of balance when backing up from sink to turn. Pt then completed functional mobility back to susanne chair where she was then taken back to dining room. She was left in dining area, reclined in susanne chair with body alarm on and under U supervision. Continue with rec D/C to LTC. Killian HIRSCH/student DEANA Evans/Patricia
--- NOTE | 2018-10-05 07:50 | NUR ---
PHYSICAL THERAPY Patient seen this am for therapy visit and was sitting in activity room Janette chair upon therapist arrival. U staff was present for entire FIREBOAT OPERATOR treatment as observation only as patient voices no new c/o's at this time. Patient transfers sit to stand CGA and ambulates SBA, 150'x 1, including backward walk with LOB. Patient did need v/c to slow down gait velocity to improve safety awareness. Patient returned to activity room chair awaiting breakfast under [facility] staff Supervision. Will continue per POC as tolerated, total treatment time 14 mintes. Justin Saavedra, FIREBOAT OPERATOR
--- NOTE | 2018-10-05 08:15 | NUR ---
Treatment Plan meeting with Dr. Haq, RN, AT, and Silk Crepe Machine Operator. Plan for discharge Friday. Pt. to return to [facility].
[2018-10-05 08:17] VITALS: BP 108/58
--- NOTE | 2018-10-05 08:25 | NUR ---
DR. SALAS NOTIFIED OF MANUAL BP 108/58, PULSE 65, VERBAL ORDER TO HOLD MORNING LOPRESSOR AND TO RECHECK BP AT 1200.
--- NOTE | 2018-10-05 09:10 | NUR ---
DR. SALAS CALLED FOR REPEAT BP CHECK. MANUAL BP 118/58 WITH PULSE OF 84. OKAY TO GIVE BP MEDICATIONS.
[2018-10-05 09:12] VITALS: BP 118/58
--- NOTE | 2018-10-05 09:31 | NUR ---
SPEECH PATHOLOGY Patient was seen for treatment this am, focusing on improvement of cognitive functioning. Patient was alert and cooperative. Orientation was targeted with external aids. Patient was oriented to self and time with cue to use external aid of clock. She did not answer any other orientation question appropriately. Recent memory was poor and repetition of information was not helpful as she would forget almost instantly. Throughout the session patient was off topic and asked questions regarding where she was, why and what was done here. The questions were answered to her satisfaction but she often repeated the questions several minutes later. She was not able to provide correct responses to functional problems. A correct response was given to her by clinician and patient then verbalized understanding. Patient remains very confused and disoriented. Continue plan as appropriate. EMILY VILLATORO MSCCC-CASTING CHIPPER
--- NOTE | 2018-10-05 10:25 | NUR ---
DR. DIAZ ON UNIT TO ASSESS PATIENT.
--- NOTE | 2018-10-05 10:44 | NUR ---
Family meeting held via the phone with pt's daughter/DPOA-HC Ludy Camilo. Ludy provided extensive pt history. Pt has suffered with depression throughout her life. Pt had two previous psych admissions in her adult years. Per Ludy, when pt was experiencing a depressive episode, pt would tend to sleep all of the time. Pt also had a tendency throughout her life to have angry outbursts. This has worsened with the dementia diagnosis. Discussed pt's current meds. Confirmed discharge plan of pt returning to [facility].
--- NOTE | 2018-10-05 12:10 | NUR ---
AM GROUP/REMINISCING AND SOCIALIZING PT DID NOT ATTEND MORNING GROUP THERAPY. PT WAS IN BED RESTING. PT WILL BE ENCOURAGED TO ATTEND AFTERNOON GROUP
--- NOTE | 2018-10-05 12:11 | NUR ---
Spoke with Cristopher Hunter at [facility] Admission Coordinator. Advised of plans to discharge Friday. Clinical Updates faxed to [facility].
--- NOTE | 2018-10-05 12:12 | NUR ---
PATIENT IS ALERT TO SELF WITH CONFUSION;ABLE TO VOICE NEEDS. DENIES ANY HALLUCINATIONS, DELUSIONS, HI/SI OR PAIN. MOOD IS STABLE WITH CALM DEMEANOR. MEDICATION COMPLAINT. Q 15 MINUTE SAFETY CHECKS MAINTAINED. INTERACTIVE WITH STAFF. 1 PERSON ASSIST WITH ACTIVITIES OF DAILY LIVING, CONTINENT OF BOWEL AND BLADDER. SET UP FOR MEALS, INTAKES ARE GOOD WITH ADEQUATE FLUIDS. AMBULATORY WITH STEADY GAIT. CONTINUE TO MONITOR FOR AGGRESSION; PROVIDE ONE ON ONE AND REDIRECTION NEEDED.
--- NOTE | 2018-10-05 15:43 | NUR ---
PM GROUP/LEISURE INTERESTS PT DID NOT ATTEND AFTERNOON GROUP THERAPY. PT WAS IN BED NAPPING.
--- NOTE | 2018-10-05 15:54 | NUR ---
Shift chart check completed.
[2018-10-05 20:00] VITALS: BP 108/58; BP 110/66
--- NOTE | 2018-10-05 21:09 | NUR ---
EVENING/CRAFTS/MUSIC PT ATTENDED AND PARTICIPATE DURING GROUP WITH HELP FROM THIS STAFF. PT PLEASANT BUT ATTEMPTED TO GET UP TO GO TO BED A FEW TIMES. PT REMAINED IN GROUP DUE TO ENCOURAGEMENT FROM STAFF. PT DID NOT BECOME AGITATED AT THOS TIME AND WILL CONTINUE TO BE ENCOURAGED TO ATTEND AND PARTICPATE IN FUTURE GROUP SESSIONS.
--- NOTE | 2018-10-05 23:42 | NUR ---
MOOD IS STABLE AND EUTHYMIC THIS SHIFT. MEDICATION COMPLIANT WITHOUT DIFFICULTY. POSITIVE PEER INTERACTIONS NOTED IN DAY ROOM. ALERT AND CONFUSED, ORIENTED TO SELF ONLY. SMILING AND PLEASANT WITH STAFF. LAYING IN BED WITH EYES CLOSED. RESPS EASY AND EVEN ON ROOM AIR.
--- NOTE | 2018-10-05 23:57 | NUR ---
PT ATE 100% OF SNACK. RECEIVED A SHOWER THIS SHIFT. HAD LG BM.
--- NOTE | 2018-10-06 04:07 | NUR ---
PT RESTING QUIETLY IN BED.
--- NOTE | 2018-10-06 04:08 | NUR ---
24 HR chart check completed.
--- NOTE | 2018-10-06 05:22 | NUR ---
PT AWAKE AND IN DINING ROOM AT THIS TIME.
--- NOTE | 2018-10-06 05:43 | NUR ---
PT SLEPT APPROXIMATEY 5.5 HRS TOTAL WITH A 1 HR BREAK IN SLEEP. UP AT THIS TIME IN DINING ROOM.
--- NOTE | 2018-10-06 07:04 | NUR ---
ATTEMPTED TO CALL OFFICE AND CELL WITH NO ANWSER. WILL PASS ALONG TO AM NURSE TO REATTEMPT AT LATER TIME.
[2018-10-06 07:48] VITALS: BP 108/72; BP 140/74
--- NOTE | 2018-10-06 08:00 | NUR ---
Treatment Plan meeting with Dr. Haq, RN, AT, and Engraver Wood. Plan for discharge . Pt. will return to [facility].
--- NOTE | 2018-10-06 08:00 | NUR ---
PT AWAKE, ALERT AND VERBAL, PLEASANT. EATING BREAKFAST IN DINING ROOM WITH PEERS. ON UNIT, UPDATE GIVEN.
--- NOTE | 2018-10-06 08:55 | NUR ---
PHYSICAL THERAPY Patient seen this am for therapy visit and was sitting in activity room chair at table following breakfast upon therapist arrival. Several [facility] staff members were present for observation only during FRUIT OR NUT FARMWORKER visit as patient voiced 5/10 chronic B hip pain / discomfort during prolonged standing activities. Patient transfers sit to stand from various chair heights, SBA and ambulates BODY TRIMMER/CGA, 75'x 2, demonstrating mild antalgic gait pattern. Patient also demonstrates decreased stride secondary to B hip pain and remains unsteady during during all 90 / 180 degree turns. Patient received v/c to improve cervical rotation prior to turning to help promote increased safety awareness with smoother step sequence. Patient completed several additional 180 turns, but with very little or no carryover. Patient returned to Quiet room chair upon her request and remained under [facility] staff Supervision. Will continue per POC as tolerated, total treatment time 15 minutes. Justin Saavedra, FRUIT OR NUT FARMWORKER
--- NOTE | 2018-10-06 09:27 | NUR ---
ATTEMPTED 2ND CALL TO DMD OFFICE FOR DENTAL CONSULT, PER ANSWERING MACHINE IS OUT OF THE OFFICE AND NOT SEEING PTS CURRENTLY UNTIL September. UPDATED. STATES TO CANCEL CONSULT AND PASS ALONG IN NURSE TO NURSE REPORT TO HAVE PT FOLLOW UP WITH DENTIST UPON RETURNING TO NURSING FACILITY. PT CURRENTLY DENIES PAIN/DISCOMFORT OR DIFFICULTY EATING/CHEWING WITH BROKEN TOOTH.
--- NOTE | 2018-10-06 10:20 | NUR ---
AND ON UNIT TO SEE PT AT THIS TIME.
--- NOTE | 2018-10-06 11:47 | NUR ---
AM GROUP/EXERCISE PT ATTENDED AND PARTICIPATED IN MOST EXERCISES. PT WAS FOCUSED WHILE EXERCISING BUT ONCE STOPPED, REPEATEDLY ASKED FOR HER SHOES, WHERE WERE HER SHOES AND WHY DIDN'T SHE HAVE HER SHOES. PT WAS REDIRECTABLE FOR A SHORT PERIOD BUT BECAME AGITATED AND AGAIN ASKED FOR HER SHOES.
--- NOTE | 2018-10-06 12:41 | NUR ---
PRN TYLENOL 650MG PO GIVEN AT THIS TIME PER PT C/O LOW BACK PAIN, NOT RATED ON PAIN SCALE. LIDODERM PATCH IN PLACE. WILL MONITOR FOR MEDICATION EFFECT.
--- NOTE | 2018-10-06 13:45 | NUR ---
TYLENOL APPEARS EFFECTIVE, PT VOICES NO FURTHER COMPLAINTS. WILL CONT TO MONITOR.
--- NOTE | 2018-10-06 14:00 | NUR ---
SPEECH PATHOLOGY Patient was seen this pm for treatment focusing on improving cognitive functioning. Patient was in activity room with peers during session. She was alert and pleasant. Orientation to place/time were targeted, using external aids around the room. Patient needed maximum cues to locate and use the aids, but was not able to recall the external aids when the question was asked again, due to severely impaired memory. Reorientation was provided as well as repetition of information. Patient was easily distracted and off topic during the session and frequently asked questions, which were answered to her satisfaction by clinician. Patient is pleasant and cooperative for tasks, but due to severity of cognition, is not able to progress with cognitive skills. Recommend discharge from speech services. Thank you for this referral. It has been a pleasure taking part in this patient's care. EMILY VILLATORO MSCCC-SPECIAL EDUCATION CLASSROOM AIDE
--- NOTE | 2018-10-06 14:14 | NUR ---
P- CONFUSION. POOR ST/LT MEMORY. MOOD REMAINS MILDLY LABILE AT TIMES, PT RANGES FROM BEING CALM AND EUTHYMIC, TO ANXIOUS AND IRRITABLE. I- ORIENTATION, MOOD AND BEHAVIOR ASSESSED. ASSESSED PT FOR SI/HI, INTENT OR PLAN. ASSESSED PT FOR S/S HALLUCINATIONS, PARANOIA AND/OR DELUSIONS. MEDICATIONS ADMINISTERED PER PHYSICIAN'S ORDERS. ASSITANCE WITH ADL CARE PROVIDED NEEDED. ENCOURAGE PT TO ATTEND AND PARTICIPATE IN [facility] GROUPS AND ACTIVITIES. R- PT IS ALERT AND ORIENTED TO PERSON ONLY, CONFUSED IN ALL OTHER AREAS. PT UNABLE TO STATE WHERE SHE IS, TIME, PRESIDENT OR SITUATION. PT STATES "OH, I DON'T KNOW. I DON'T CARE". RESPS EASY AND EVEN ON ROOM AIR. MOOD REMAINS MILDLY LABILE, AFFECT BROAD RANGE. SPEECH IS WNL AND COHERENT, ABLE TO MAKE NEEDS KNOWN WITHOUT DIFFICULTY. PT DENIES SI/HI, INTENT OR PLAN. PT DENIES HALLUCINATIONS, NO RESPONSE TO INTERNAL STIMULI NOTED. NO PARANOIA OR DELUSIONS NOTED. PT IS MEDICATION COMPLIANT WITHOUT DIFFICULTY. NO DISTRESS NOTED. P- PLAN TO CONTINUE CURRENT TREATMENT, CONTINUE TO MONITOR MOOD AND BEHAVIORS, PROVIDE APPROPRIATE REORIENTATION, REDIRECTION AND 1:1 NEEDED. CONTINUE TO ENCOURAGE MEDICATION COMPLIANCE WELL GROUP ATTENDANCE AND PARTICIPATION.
--- NOTE | 2018-10-06 14:26 | NUR ---
PT CAME OUT OF GROUP ROOM, AT STATES PT IS LOOKING FOR THE BATHROOM, THIS RN ATTEMPTED TO ASSIST PT TO BATHROOM, PT STATES "NO, I DON'T HAVE TO GO THERE". PT WANTED TO SIT ON COUCH IN QUIET ROOM. PT SAT THERE FOR A FEW MOMENTS BEFORE GETTING BACK UP AND WANDERING AROUND THE UNIT. INCREASED RESTLESSNESS NOTED. PT STATED TO MENTAL HEALTH WORKER SHE WAS FEELING TIRED, MENTAL HEALTH WORKER ASSISTED PT TO BED AT THIS TIME. Q15 MIN MONITORING CONTINUES PER POLICY.
--- NOTE | 2018-10-06 15:41 | NUR ---
PM GROUP/ART AND MUSIC PT ATTENDED GROUP AND PARTICIPATED IN THE ART PROJECT MINIMALLY. PT LEVEL OF CONFUSION IS HIGH, PT LEFT TO USE THE RESTROOM AND RETURNED AND HOUR LATER. PT WAS CONTENT TO SIT AND LISTEN TO MUSIC AND HAVE A SNACK. PT EXHIBITED NO AGITATION DURING GROUP.
--- NOTE | 2018-10-06 16:13 | NUR ---
PT RESTING QUIETLY IN BED WITH EYES CLOSED AT THIS TIME. RESPS EASY AND EVEN ON ROOM AIR. Q15 MIN MONITORING CONTINUES.
--- NOTE | 2018-10-06 17:09 | NUR ---
PRN TYLENOL 650MG PO GIVEN AT THIS TIME PER PT REQUEST FOR C/O LOW BACK PAIN, NOTED RATED ON PAIN SCALE. UNRELIEVED BY NONPHARMALOGICAL MEASURES. WILL MONITOR FOR EFFECTIVENESS OF MEDICATION.
--- NOTE | 2018-10-06 17:27 | NUR ---
SHIFT CHART CHECK COMPLETED.
--- NOTE | 2018-10-06 18:10 | NUR ---
TYLENOL EFFECTIVE. PT RESTING QUIETLY IN BED AT THIS TIME. RESPS EASY AND EVEN ON ROOM AIR. PT VOICES NO FURTHER COMPLAINTS.
[2018-10-06 20:16] VITALS: BP 105/63
--- NOTE | 2018-10-06 22:38 | NUR ---
MADE AWARE OF NEW CONSULT AND MED REC COMPLETED.
--- NOTE | 2018-10-06 23:36 | NUR ---
MOOD IS STABLE AND EUTHYMIC THIS SHIFT. PT IS PLEASANTLY CONFUSED PER USUAL. MEDICATION COMPLIANT WITHOUT DIFFICULTY. POSITIVE PEER INTERACTIONS NOTED IN DAY ROOM. ALERT AND CONFUSED, ORIENTED TO SELF ONLY. SMILING AND PLEASANT WITH STAFF. SPEECH IS NONSENSICAL. ANWSERS ARE NOT APPROPRIATE TO QUESTIONS ASKED. LAYING IN BED WITH EYES CLOSED. RESPS EASY AND EVEN ON ROOM AIR.
--- NOTE | 2018-10-07 05:42 | NUR ---
PT SLEPT PAST 2215, UP X2 BRIEFLY T/O THE NIGHT.
--- NOTE | 2018-10-07 05:44 | NUR ---
ATE 100% OF HS SNACK.
--- NOTE | 2018-10-07 06:56 | NUR ---
CRITICAL BSG 45, 240 CC ORANGE JUICE AND 1/2 DESTINEE GIVEN, BSG NOW 103, MADE AWARE. NNO RECEIVED.
[2018-10-07 08:00] VITALS: BP 148/66
--- NOTE | 2018-10-07 08:00 | NUR ---
Treatment Plan meeting with Dr. Haq, RN, AT, and Pharmacy Clerk. Plan for discharge Friday. Patient to return to [facility].
--- NOTE | 2018-10-07 10:39 | NUR ---
Treatment Plan meeting with Dr. Haq, RN, AT, SW and Milk House Worker. Plan for discharge Friday.
--- NOTE | 2018-10-07 11:48 | NUR ---
AM GROUP/EXERCISE AND COPING SKILLS PT ATTENDED AND PARTICIPATED IN GROUP BY DOING THE EXERCISES AND OPENLY DISCUSSING COPING SKILLS FOR LIFE STRESSORS WITH PEERS. PT EXHIBITED NO AGITATION DURING GROUP
--- NOTE | 2018-10-07 13:19 | NUR ---
Clinical Updates faxed to [facility] Attn:
--- NOTE | 2018-10-07 13:28 | NUR ---
OT NOTE Pt was seen this P.M. 1:1 for 15 minute OT session with PEDIATRIC CRITICAL CARE NURSE and nursing staff present for observation only. Upon arrival pt was sitting upright in dining room. Pt identified by name and and had complaints of low back pain which she could not rate on 0-10 pain scale. Pt was taken to her bedroom where she completed functional mobility into the bathroom with Mary BUSCH. There she transferred on/off standard commode with CGA for safety. Clothing management completed with Mary and toilet hygiene completed with supervision while sitting. She then stood sink side while washing her hands and face with CGA. Pt had one LOB episode that occured backwards that required Mary to correct. Pt was then left sitting upright in the dining room under [facility] staff supervision. Continue with rec D/C plan to return to LTC. DEANA Evans/Patricia
--- NOTE | 2018-10-07 13:30 | NUR ---
PHYSICAL THERAPY Patient seen this pm for therapy visit and was sitting up in activity room chair upon therapist arrival. OT assistant refinery operator was present for observation only during SHIP FITTER visit as patient reports c/o of low back pain, 09/09. Patient transfers sit to stand SBA and ambulates DAYCARE PROVIDER/CGA, 100'x 2, demonstrating bouts of increased gait velocity, along with "slouched" upright posture. Patient voices increased low back pain > 80 feet and needed seated rest break between gait trials. Patient still remains a little unsteady during backward walk and 180 degree turns, demonstrating cautious step sequence. Patient returned to activity room chair and remained under [facility] staff Supervision. Will continue per POC as tolerated, total treatment time 16 minutes. Justin Saavedra, SHIP FITTER
--- NOTE | 2018-10-07 15:37 | NUR ---
PM GROUP/MANICURES AND MUSIC PT ATTENDED GROUP AND CHOSE A GOLD GLITTER KYRGYZ FOR HER NAILS. PT ENJOYED A SNACK AND LISTENED TO THE MUSIC. PT DID REPEATEDLY ASK FOR THE TIME BUT EXHIBITED NO AGITATION.
--- NOTE | 2018-10-07 16:38 | NUR ---
PT IS CONFUSED. PT ASSESSED FOR ORIENTATION LEVEL, MOOD, AND AFFECT. PT ASSESSED FOR SI/HI. ASSESSED FOR HALLUCINATIONS AND DELUSIONS. ASSESSED FOR SLEEP QUALITY AND APPETITE. PT IS ORIENTED TO PERSON ONLY. STATES "I DON'T KNOW ABOUT THAT, I DON'T WORRY ABOUT IT" WHEN CUED TO VERBALIZE YEAR AND PLACE. PT ABLE TO RECALL THAT SHE WAS FROM [place], AND THAT [place] IS "EVERY BIT OF A [address]". PT IS PLEASANT AND COOPERATIVE WITH ASSESSMENT, AFFECT IS APPROPRIATE. PT'S VERBAL RESPONSES APPROPRIATE TO CONTENT. PT'S SPEECH IS TANGENTIAL. PT IS CONVINCED THAT SHE NEEDS TO LEAVE HER TO "GO SEE MY AND MY MOM", EASILY REDIRECTABLE. DENIES SI/HI. DENIES HALLUCINATIONS. NO OVERT S/S OF ATTENDING TO INTERNAL STIMULI. NO OVERT PARANOIA/DELUSIONS PRESENT. PER OBSERVATION, PT IS SLEEPING AND EAT WELL. PT IS IN DAY ROOM EATING SUPPER WITH PEERS AT THIS TIME. FALLING STAR PROGRAM MAINTAINED AT THIS TIME D/T PT BEING A FALL RISK. WILL CONTINUE TO MONITOR PT'S MOOD AND AFFECT, WILL MONITOR FOR MEDICATION COMPLIANCE. CONTINUE CURRENT TREATMENT PLAN. WILL ENCOURAGE PO INTAKE, AND PARTICIPATION IN GROUP THERAPY/ACTIVITY FOR SOCIALIZATION AND SUPPORT. WILL CONTINUE TO REDIRECT AND REORIENT APPROPRIATE. CONTINUE Q15 MIN MONITORING PER POLICY, FALLING STAR PROGRAM MAINTAINED.
[2018-10-07 20:00] VITALS: BP 115/63
--- NOTE | 2018-10-07 21:18 | NUR ---
DUE TO COGNITION UNABLE TO HAVE A 1:1.. MEDICATION COMPLIANT. REASSURANCE GIVEN WITH EVERY INTERACTION. REDIRECTION AND REORIENTATION PROVIDED. CLIENT GIVEN FULL SHOWER AND PM CARE BEFORE BEING PLACED IN BED. WILL CONTINUE Q 15 MINUTE SAFETY CHECKS
--- NOTE | 2018-10-07 21:26 | NUR ---
P--CONFUSION/DISORIENTATION I--REORIENTED TO PLACE AND TIME. ALLOWED CLIENT TO TALK ABOUT THE DAYS EVENTS. MEDICATION EDUCATION DONE WITH MED PASS. EMOTIONAL SUPPORT PROVIDED FOR HER ANXIETY OF SHORT TERM MEMORY ISSUES. R--WE HAD A GOOD DAY. EVERYONE WAS REALLY NICE. SO WHAT DO WE DO NOW? MY MOM AND DAD PUT THE STUFF OVER THERE P--CONTINUE TO REORIENT AND REORIENT. MONITOR FOR CHANGES IN BEHAVIOR AND OR MOOD
--- NOTE | 2018-10-08 04:05 | NUR ---
24 HR chart check completed.
--- NOTE | 2018-10-08 05:53 | NUR ---
SLEPT WELL PAST 2229.
[2018-10-08 07:27] VITALS: BP 116/84
--- NOTE | 2018-10-08 08:00 | NUR ---
Treatment Plan meeting with Dr. Haq, RN, AT, and Rigging Man. Plan for discharge Next week. Pt. to return to [facility].
--- NOTE | 2018-10-08 08:30 | NUR ---
PHYSICAL THERAPY Patient seen this am for therapy visit and was siiting in activity room chair at table upon therapist arrival. Patient was very pleasant this morning as OT talent acquisition assistant was present for observation only during HYDRATE THICKENER OPERATOR visit. Patient reports no new c/o's at this time and transfers CGA x 1 sit to stand without use of AD. Patient ambulates AIRPORT SHUTTLE DRIVER/CGA, 100'x 2, Patient demonstrates increased muscle fatigue upon 2nd gait trial and now reports B hip pain at 8/10. Patient was also able to compolete eyes open / closed balance ex without LOB, but unable to maintain single leg stance on either side due to immediate LOB. Patient returned to activity room chair and remained under [facility] staff Supervision. Will contine per POC as tolerated, total treatment time 17 minutes. Justin Saavedra, HYDRATE THICKENER OPERATOR
--- NOTE | 2018-10-08 08:38 | NUR ---
OT NOTE Pt was seen this A.M. 1:! for 12 minute OT session with SPIN TANK TENDER and nursing staff present for observation only. Upon arrival pt was sitting upright in the dining room. Pt identified by name and and had no complaints at this time. Pt completed functional mobility to her room with CGA ELECTRONIC ENGINEERING TECHNICIAN and occasional standing rest breaks due to increased fatigue. While in her bedroom pt transferred into the bathroom. There she stood sink side while washing her hands and face with CGA. Pt had LOB backwards that occured while eyes were closed, pt required Mary to correct. Functional mobility completed back to the dining room due to pt's complaints of increased low back pain rating it an 8/10. Pt was left sitting upright in the dining room under [facility] staff supervision. Continue with rec D/C plan to return to LTC. DEANA Evans/Patricia
--- NOTE | 2018-10-08 10:34 | NUR ---
NO ADVERSE MOODS OR BEHAVIORS NOTED AT THIS TIME. PT CALM, MOOD IS STABLE, LABILE AND RESTLESS AT TIMES. PT MED COMPLIANT WITHOUT DIFFICULTY, UNABLE TO PROVIDE MED EDUCATION D/T COGNITION. NO HALLUCINATIONS OR DELUSIONS NOTED. PT DENIES ANY SUICIDAL THOUGHTS. PT AMBULATORY THROUGHOUT UNIT,GAIT OCCASIONALLY UNSTEADY, PT ENCOURAGED TO UTILIZE HAND RAIL WHEN WALKING. PT CONTINENT OF BOWEL AND BLADDER. PLAN IS TO MONITOR PT BEHAVIORS ON Q15 MIN SAFETY CHECKS, ENCOURAGE MED COMPLIANCE AND CONTINUE TO PROVIDE EMOTIONAL SUPPORT AND 1:1 FOR PT TO VOICE FEELINGS.
--- NOTE | 2018-10-08 11:06 | NUR ---
ON UNIT TO ASSESS PT, UPDATE PROVIDED.
--- NOTE | 2018-10-08 11:43 | NUR ---
AM GROUP/EXERCISE AND ART PT ATTENDED AND PARTICIPATED IN THE EXERCISES. PT IS PLEASANTLY CONFUSED AND IS UNABLE TO COMPLETE TASKS. PT EXHIBITED NO AGITATION DURING GROUP.
--- NOTE | 2018-10-08 14:20 | NUR ---
OCCUPATIONAL THERAPY CO-SIGN I approve of the Occupational Therapy notes written above. LORRAINE WILLAMS OTR/Patricia
--- NOTE | 2018-10-08 14:22 | NUR ---
Left a message for pt's daughter Ludy Page providing pt update.
--- NOTE | 2018-10-08 15:44 | NUR ---
PM GROUP/ART AND MUSIC THERAPY PT ATTENDED GROUP BUT CHOSE NOT TO PARTICIPATE. PT WAS CONSTANTLY QUESTIONING WHEN SHE COULD GO HOME AND "MY DAD AND MOM WILL BE WORRIED, I DON'T STAY OUT LIKE THIS" PT WAS REDIRECTABLE ONLY FOR SHORT PERIODS BEFORE VOICING THE SAME CONCERNS. PT EXHBITED A LITTLE AGITATION BUT COULD BE CALMED
--- NOTE | 2018-10-08 16:17 | NUR ---
PATIENT COMPLAINING OF LOWER BACK PAIN, RATING 9/10. PRN TYLENOL 650MG PO GIVEN AT THIS TIME.
--- NOTE | 2018-10-08 17:23 | NUR ---
ASKED PATIENT ABOUT BACK PAIN. PATIENT STATES "IT FEELS A LITTLE BETTER" PATIENT ENCOURAGED TO LAY DOWN FOR A LITTLE BIT. PRN TYLENOL EFFECTIVE.
[2018-10-08 19:50] VITALS: BP 127/75
--- NOTE | 2018-10-08 21:31 | NUR ---
PLEASENTLY CONFUSED. INTERACTIVE WITH PEERS AND STAFF. FOLLOWS DIRECTIONS WELL BUT MUST BE GIVEN IN A STEP BY STEP METHOD. GAIT SLOW AT THIS TIME. REINFORCE HER TO CALL FOR ASSISTANCE WITH AMBULATION.
--- NOTE | 2018-10-09 02:54 | NUR ---
24 HR chart check completed.
--- NOTE | 2018-10-09 05:45 | NUR ---
SLEPT WELL PAST 2130PM
--- NOTE | 2018-10-09 07:00 | NUR ---
PHYSICAL THERAPY Patient seen this am for therapy visit and standing in hallway with OT wardrobe assistant upon therapist arrival. OT wardrobe assistant was present for observation only during OFFICE REP visit as patient voices no new c/o's at this time. Patient transfers sit to stand CGA and ambulates PATIENT ACCOUNTS COORDINATOR/CGA, 150'x 1, slow margareth with cautious gait pattern. Patient also able to walk backwards with no LOB, but was unsteady during Tandem walk ex, LOB x 2. Patient without difficulty during 90/180 turns and returned to activity room chair under [facility] staff Supervision. Will continue per POC as tolerated, total treatment time 14 minutes. Justin Saavedra, OFFICE REP
--- NOTE | 2018-10-09 07:14 | NUR ---
OT NOTE Pt was seen this A.M. 1:1 for 14 minute OT session with DELIVERY NURSE and nursing staff present for observation only. Upon arrival pt was sitting upright in the dining room. Pt identified by name and and had no complaints at this time. Pt completed functional mobility into the bathroom with CGA SENIOR PLANNING ANALYST. There she stood sink side while completing hair care, washing her face, and completing oral care. Pt was able to completed with CGA for safety due to being unsteady at the sink side. Functional mobility completed back to dining room with CGA SENIOR PLANNING ANALYST. There she was left under [facility] staff supervision. Continue with rec D/C plan to return to LTC. DEANA Evans/Patricia
[2018-10-09 07:56] VITALS: BP 112/82
--- NOTE | 2018-10-09 08:30 | NUR ---
Treatment Plan meeting with Dr. Haq, RN, AT, SW and Aviation Project Engineer. Plan for discharge Early next week. Pt. will return to [facility].
--- NOTE | 2018-10-09 10:47 | NUR ---
DR DIAZ ON UNIT TO SEE PATIENT
--- NOTE | 2018-10-09 13:16 | NUR ---
P-CONFUSION. PAIENT ALERT WITH CONFUSION. PATIENT WITH SHORT TERM AND FINE JEWELRY SALES ASSOCIATE MEMORY DEFICITS. PATIENT WITH NO RESPIRATORY DISTRESS. PATIENT WITH NO SUICIDAL OR HOMICIDAL IDEATIONS. PATIENT WITH NO HALLUCINATIONS OR DELUSIONS. I-REDIRECTION WITH 1:1 THERAPEUTIC INTERVENTIONS AND PRESENT REALITY. EDUCATED AND ENCOURAGE MEDICATION COMPLIANCE R- PATIENT MEDICATION COMPLIANT. PATIENT AMBULATING TO BATHROOM WITH MINIMAL ASSIST X 1. PATIENT CONTINENT OF BLADDER AT THIS TIME. PATIENT REDIRECTED THROUGHOUT SHIFT ON DIRECTIONS TO ROOM AND BATHROOM. P-CONTINUE TO ENCOURAGE MEDICATION COMPLIANCE, CONTINUE TO PRESENT REALITY, ENCOURAGE GROUP THERAPY WHILE AWAKE
--- NOTE | 2018-10-09 13:34 | NUR ---
Clinical Updates faxed to [facility] Attn:
--- NOTE | 2018-10-09 16:40 | NUR ---
Shift chart check completed.
[2018-10-09 20:31] VITALS: BP 124/59
[2018-10-09 21:30] VITALS: BP 132/72
--- NOTE | 2018-10-10 01:00 | NUR ---
P-CONFUSED, GRANDIOSE. PT IRRITABLE, YELLING OUT AT STAFF AND ROOMMATE STATING "I HAVE MY OWN PRIVATE ROOM, I OWN THIS WHOLE PLACE, I OWN YOU". I-REORIENT TO REALITY AND REDIRECT. PROVIDE 1:1 FOR PATIENT TO VOICE FEELINGS WITH EMOTIONAL SUPPORT. PROVIDE LOW STIMULI ENVIRONMENT WITH THERAPEUTIC INTERVENTIONS TO HELP CALM PATIENT. ENCOURAGE MEDICATION COMPLIANCE. R-PATIENT ALERT AND ORIENTED TO SELF, CONFUSED. UNRECEPTIVE TO REALITY ORIENTATION WHEN PRESENTED, STATING "I DONT CARE WHAT YOU SAY, THIS PLACE IS MINE". PT REDIRECTED OUT OF ROOM AND ASSISTED TO QUIET ROOM IN NAHOMY CHAIR, 1:1 WITH THERAPEUTIC INTERVENTIONS PROVIDED WITH POSITIVE EFFECT. PT ASSISTED BACK TO BED WITHOUT DIFFICULTY. MEDICATION COMPLIANT WITHOUT DIFFICULTY, UNABLE TO EDUCATE DUE TO COGNITION. DENIES SI/HI AND HALLUCINATIONS, NO NOTED RESPONDING TO INTERNAL STIMULI, NO PHYSICAL COMPLAINTS VOICED. PATIENT CURRENTLY LAYING DOWN WITH EYES CLOSED. RESPIRATIONS EASY AND REGULAR, NO SIGNS OR SYMPTOMS OF DISTRESS NOTED. P- CONTINUE TO MONITOR MOOD AND BEHAVIORS, REORIENT AND REDIRECT NEEDED. PROVIDE 1:1 FOR PATIENT TO VOICE FEELINGS. ENCOURAGE MEDICATION COMPLIANCE. MAINTAIN Q 15 MIN CHECKS.
--- NOTE | 2018-10-10 05:58 | NUR ---
PATIENT OBSERVED ON Q 15 MIN CHECKS TO HAVE SLEPT APPROX 5 HOURS WITH NO AWAKENINGS OR SIGNS AND SYMPTOMS OF DISTRESS NOTED.
--- NOTE | 2018-10-10 06:05 | NUR ---
24 HOUR CHART CHECK COMPLETED.
--- NOTE | 2018-10-10 06:45 | NUR ---
DR. ASENCIO NOTIFIED OF BS AT 0627 WAS 48, OJ AND SANDWICH PROVIDED. PATIENT IS ASYMPTOMATIC. RECHECK BLOOD SUGAR AT 0645 BS 38. VERBAL ORDER FOR PRN DEXTROSE 50%; 25GRAMS/50ML.
--- NOTE | 2018-10-10 06:59 | NUR ---
CALLED RESIDENT NUMBER [phone] SPOKE TO , UPDATED ON PATIENTS RECENT BLOOD SUGAR OF 73, PT ASYMPTOMATIC AND TAKING FOOD AND ORANGE JUICE WELL. STATED CONTINUE GIVING FOOD AND ORANGE JUICE AND D/C RECENT ORDER OF 50% DEXTROSE 25GRAMS/50ML AND TO RECHECK IN A LITTLE BIT. NO OTHER ORDERS RECIEVED.
[2018-10-10 07:43] VITALS: BP 131/55
--- NOTE | 2018-10-10 10:37 | NUR ---
Patient alert to person only with confusion noted. ST/LT memory deficts noted. No SI/HI noted. No hallucinations noted at this time. Patient compliant with medications without any difficulty. Provided 1:1 with patient for emotional support and expression of feelings. Patient in dining room participating in group therapy. Plan to encourage medication compliance. Continue to encourage group participation and continue to provide 1:1 for emotional support. Q 15 minute safety checks continued and maintained. See [facility] flowsheet for further documentation.
--- NOTE | 2018-10-10 11:56 | NUR ---
AM GROUP/EXERCISES/AFFIRMATION BOX PT ENCOURAGED TO ATTEND GROUP BUT PT CHOSE TO REMAIN IN BED SLEEPING. PT WILL CONTINUE TO BE ENCOURAGED TO ATTEND AN DPARTICIPATE IN FUTURE GROUP SESSIONS.
--- NOTE | 2018-10-10 15:21 | NUR ---
Shift chart check completed.
--- NOTE | 2018-10-10 16:35 | NUR ---
PM GROUP/MUSIC/BIRDHOUSES PT ATTENDED AND PARTICIPATED ALTHOUGH PT DID NOT THINK SHE WAS CAPABLE OF ACTIVITY. ONCE PT COMPLETED ACTIVITY PT TEARED UP DUE TO BEING HAPPY WITH COMPLETING HER BIRDHOUSE. PT DID NOT EXPRESS ANY AGITATION BUT EXPRESSED CONFUSION ENTIRETY OF GROUP. THIS STAFF CONSISTENTLY REORIENTING/REDIRECTING PT. PT WILL CONTINUE TO ATTEND AN DPARTICIPATE IN FUTURE GROUP SESSIONS.
--- NOTE | 2018-10-10 17:49 | NUR ---
Medicated with Tylenol po prn for generalized discomfort. Will monitor effectiveness.
[2018-10-10 20:30] VITALS: BP 131/70
--- NOTE | 2018-10-10 23:25 | NUR ---
24 HOUR CHART CHECK COMPLETED.
--- NOTE | 2018-10-11 00:55 | NUR ---
P-CONFUSION, ST/LT MEMORY DEFICITS. I-ASSESS ORIENTATION, MOOD, AND BEHAVIOR. REORIENT AND REDIRECT NEEDED. PROVIDE 1:1 FOR PATIENT TO VOICE FEELINGS. ENCOURAGE MEDICATION COMPLIANCE AND EDUCATE. R-PATIENT ALERT TO SELF, CONFUSED IN ALL OTHER AREAS. MOOD HOPELESS/HELPLESS, ANXIOUS AT TIMES. MEMORY DEFICITS NOTED PT REQUIRES FREQUENT REORIENTATION DURING INTERACTIONS WITH STAFF. NO AGGRESSION OR AGITATION NOTED SO FAR THIS SHIFT. PT COMPLIANT WITH HS SNACK AND HS MEDICATION PASS, UNABLE TO EDUCATE DUE TO COGNITON. PT DENIES SI/HI AND HALLUCINATIONS, NO NOTED RESPONDING TO INTERNAL STIMULI. NO PARANOIA/DELUSIONS OBSERVED. NO PHYSICAL COMPLAINTS VOICED. PATIENT CURRENTLY LAYING DOWN WITH EYES CLOSED, RESPIRATIONS EASY AND REGULAR, NO SIGNS OR SYMPTOMS OF DISTRESS NOTED. P-REORIENT AND REDIRECT NEEDED. PROVIDE 1:1 FOR PATIENT TO VOICE FEELINGS. ENCOURAGE MEDICATION COMPLIANCE. MAINTAIN Q 15 MIN CHECKS.
--- NOTE | 2018-10-11 03:00 | NUR ---
PATIENT AWAKE AND REQUESTING SNACK, BSG CHECKED PER NURSING JUDGEMENT WITH A RESULT OF 77, ASYMPTOMATIC. PT CURRENTLY HAVING A SANDWICH AND ORANGE JUICE REQUESTED.
--- NOTE | 2018-10-11 05:51 | NUR ---
PATIENT OBSERVED ON Q 15 MIN CHECKS TO HAVE SLEPT APPROX 7 HOURS WITH X1 AWAKENING THROUGHOUT THE NIGHT TO HAVE SNACK. NO SIGNS OR SYMPTOMS OF DISTRESS NOTED.
[2018-10-11 07:55] VITALS: BP 122/70
--- NOTE | 2018-10-11 11:06 | NUR ---
DR DIAZ AND DR CRAIG ON UNIT TO SEE PATIENT
--- NOTE | 2018-10-11 14:51 | NUR ---
P-CONFUSION. PAIENT ALERT WITH CONFUSION. 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 PATIENT WITH NO RESPIRATORY DISTRESS. PATIENT WITH NO SUICIDAL OR HOMICIDAL IDEATIONS. PATIENT WITH NO HALLUCINATIONS OR DELUSIONS. I-REDIRECTION WITH 1:1 THERAPEUTIC INTERVENTIONS AND PRESENT REALITY. EDUCATED AND ENCOURAGE MEDICATION COMPLIANCE R- PATIENT MEDICATION COMPLIANT. PATIENT AMBULATING TO BATHROOM WITH MINIMAL ASSIST X 1. PATIENT CONTINENT OF BLADDER AT THIS TIME. PATIENT REDIRECTED THROUGHOUT SHIFT ON DIRECTIONS TO ROOM AND TO DINING AREA. REDIRECTION WITH REALITY PRESENTATION EFFECTIVE FOR SHORT PERIODS OF TIME DUE TO PATIENT COGNITION. PATIENT ISOLATIVE TO ROOM INTERMITTENTLY THROUGHOUT SHIFT. PATIENT EATING MEALS AND SNACKS BETWEEN MEALS. PATIENT CALM, PURPOSEFUL, AND COOPERATIVE AT THIS TIME. P-CONTINUE TO ENCOURAGE MEDICATION COMPLIANCE, CONTINUE TO PRESENT REALITY, ENCOURAGE GROUP THERAPY WHILE AWAKE
--- NOTE | 2018-10-11 16:52 | NUR ---
PM GROUP/LEISURE SKILLS/MUSIC PT ATTENDED AND PARTICIPATED TO BEST OF ABILITY. PT EXPRESSING CONFUSION DURING TIME IN GROUP, BUT EASILY REDIRECTED. PT DID NOT BECOME AGITATED AT THIS TIME AND WILL CONTINUE TO ATTEND AN DPARTICPATE IN FUTURE GROUP SESSIONS.
--- NOTE | 2018-10-11 18:29 | NUR ---
Shift chart check completed.
--- NOTE | 2018-10-11 18:51 | NUR ---
PATIENT MEDICATED WITH TYLENOL 650MG FOR COMPLAINT OF LOWER BACK PAIN. MEDICATION WITH SOMEWHAT EFFECTIVE RESULTS AT THIS TIME
[2018-10-11 20:13] VITALS: BP 105/59
[2018-10-11 21:10] VITALS: BP 118/62
--- NOTE | 2018-10-11 23:55 | NUR ---
24 HOUR CHART CHECK COMPLETED.
--- NOTE | 2018-10-12 02:12 | NUR ---
PATIENT ALERT AND ORIENTED TO SELF, PLESANTLY CONFUSED. PATIENT CALM, COOPERATIVE AND INTERACTIVE. PT SAT IN DINING ROOM WATCHING A MOVIE WITH PEERS AND HAD HS SNACK. MEMORY DEFICITS NOTED PATIENT NEEDS FREQUENT REORIENTATION THAT SHE HAS ALREADY ATE SNACK. MEDICATION COMPLIANT WITHOUT DIFFICULTY, UNABLE TO EDUCATE DUE TO COGNITION. PT DENIES SI/HI AND HALLUCINATIONS, NO NOTED RESPONDING TO INTERNAL STIMULI. NO PARANAOIA OR DELUSIONS OBSERVED. NO PHYSICAL COMPLAINTS VOICED. PATIENT CURRENTLY LAYING DOWN WITH EYES CLOSED, RESPIRATIONS EASY AND REGULAR, NO SIGNS OR SYMPTOMS OF DISTRESS NOTED. PLAN IS REORIENT AND REDIRECT NEEDED. PROVIDE 1:1 FOR PATIENT TO VOICE FEELINGS. ENCOURAGE MEDICATION COMPLIANCE. MAINTAIN Q 15 MIN CHECKS.
--- NOTE | 2018-10-12 03:00 | NUR ---
BSG CHECKED PER NURSING JUDGEMENT WITH RESULT OF 247, PT ASYMPTOMATIC, NO S/S OF DISTRESS.
--- NOTE | 2018-10-12 05:20 | NUR ---
PATIENT OBSERVED ON Q 15 MIN CHECKS TO HAVE SLEPT APPROX 7 HOURS WITH NO AWAKENINGS OR SIGNS AND SYMPTOMS OF DISTRESS NOTED.
[2018-10-12 07:44] VITALS: BP 116/74
--- NOTE | 2018-10-12 08:00 | NUR ---
Treatment Plan meeting with Dr. Haq, RN, AT, and [facility]. Plan for discharge Friday or Friday. Pt. to return to [facility] For[facility].
--- NOTE | 2018-10-12 08:29 | NUR ---
OT Note Pt was seen this AM 1:1 for 11 mins for OT session with nursing staff present for observation only. Upon arrival pt was sitting upright in chair in dining room area. Pt identified by name and and had complaints of pain in lower back which she was unable to rate on 0-10 pain scale. Pt required stand by assist from sit to stand from chair and performed functional mobility with contact guard due to safety reasons for unsteady gait. Pt sat on EOB with contact guard assist again for safety purposes due to being impulsive and rushing. Pt performed good bed mobility with stand by assist while transfering sit<>supine. Dressing completed sitting EOB which consisted of UB dressing including doffing and donning sweater, and LB dressing including doffing and donning socks. Clothing management completed with stand by assist. Pt then stood up from bed side with stand by assist and completed functional mobility into bathroom with contact guard. Sitting on standard commode and sit to stand from commode required stand by assist. Self care tasks performed at sink side needing verbal cues for sequencing while washing hands with stand by assist. Functional mobility performed back to dining room area with contact guard assist where she was left sitting upright in chair under [facility] staff supervision. Continue with rec D/C to LTC. Killian HIRSCH/Student DEANA Evans/Patricia
--- NOTE | 2018-10-12 08:32 | NUR ---
PATIENT COMPLAINING OF LOWER BACK PAIN, RATING 6 OUT OF 10. PT REQUESTING AND RECEIVED AT THIS TIME PO TYLENOL 650MG PER PRN ORDERS. WILL CONTINUE TO MONITOR FOR EFFECTIVENESS.
--- NOTE | 2018-10-12 08:35 | NUR ---
PHYSICAL THERAPY Patient was sitting up in activity room chair following OT assistant banquet manager visit upon therapist arrival. Patient voices no c/o's at this time and [facility] staff member was present for observation only during MANAGER OF APPLICATION DEVELOPMENT session. Patient was a little tired after walking with other therapist, but agreed to and performed seated B LE therex, all planes, x 20 reps each. Patient remained in activity room chair under [facility] staff Supervision and will continue per POC as tolerated. Total treatment time 13 minutes. Justin Saavedra, MANAGER OF APPLICATION DEVELOPMENT
--- NOTE | 2018-10-12 09:58 | NUR ---
Clinical Updates faxed to [facility] Attn:
--- NOTE | 2018-10-12 10:58 | NUR ---
NO FURTHER COMPLAINTS OF LOWER BACK PAIN AT THIS TIME. PRN EFFECTIVE.
--- NOTE | 2018-10-12 11:17 | NUR ---
PATIENT IS PLEASANTLY CONFUSED. ST/LT MEMORY DEFICITS NOTED. PT IS ANXIOUS AT TIMES AND WILL WALK THE HALLS. PT STATING THAT HER BACK IS HURTING INTERMITTENLY, SEE EMAR. MOST OF THE TIME PATEINT IS PLEASANT AND INTERACTING WITH STAFF AND PEERS. PARTICIPATING AND INTERACTING. PT WILL FORGET THAT SHE ATE A WHOLE MEAL AND STATE THAT SHE IS STARVING AND SHE BARELY ATE ANYTHING. ENCOURAGE PATIENT TO DO OTHER ACTIVITIES INSTEAD OF EATING DUE TO PT BEING A DM. MEDICATION COMPLIANT WITH NO COMPLICATIONS AND EDUCATION PROVIDED. DENIES HALLUCINATIONS, DELUSIONS, SI/HI, OR PAIN AT THIS TIME. NO S/S OF INTERACTING WITH INTERNAL STIMULI. PT WILL STATE THAT SHE NEEDS TO GO TO THE RESTROOM AND WHEN SHE IS WALKING DOWN TO HER ROOM PT SEEMS TO FORGET THAT SHE NEEDED TO GO TO THE RESTROOM AND WILL BE WALKING BACK DOWN THE ORONA; REDIRECTION AND REMINDER THAT PT NEEDED TO GO TO THE RESTROOM IS NEEDED. REDIRECTION AND REORIENTATION NEEDED FREQUENTLY WHEN CONFUSION IS NOTED. PT'S GAIT STEADY WHEN AMBULATING. Q15 MINUTE CHECKS MAINTAINED FOR SAFETY.
--- NOTE | 2018-10-12 11:37 | NUR ---
AM GROUP/GAME/LEISURE SKILLS PT ATTENDED AND PARTICIPATED IN GROUP TO BEST OF ABILITY. PT IN NEED OF CONSTANT REDIRECTION AND REORIENTATION. PT PLEASANTLY CONFUSED. PT WILL CONTINUE TO ATTEND AND PARTICIPATE IN FUTURE GROUP SESSIONS TO BEST OF PT ABILITY.
--- NOTE | 2018-10-12 11:40 | NUR ---
Dr. Dowd on floor to assess patient. Update provided.
--- NOTE | 2018-10-12 13:09 | NUR ---
Shift chart check completed.
--- NOTE | 2018-10-12 14:49 | NUR ---
Spoke with pt's daughter Ludy Page who stated that she and her sister have decided that they would prefer that pt discharge to the [facility] rather than [facility]. Phoned Audrey at the [facility] who confirmed that a bed is available. Faxed referral to her attention. Contacted [facility] and requested that the PAS and Resident Review be faxed to this technical proposal writer's attention.
--- NOTE | 2018-10-12 14:51 | NUR ---
Spoke with patient this afternoon. Informed pt that this loan underwriter had spoken to pt's dtr Ludy and that Ludy wanted pt to know that she loves her. Pt's face immediately brightened and tears appeared in her eyes. Pt stated, "My Ludy, you talked to my Ludy? Oh, I miss her so much. What do I do now?" Reassured pt that she would see Ludy soon. Confusion was noted in pt. As she left the room she was unsure where to go and believed that she had not eaten her lunch. Nursing confirmed that pt did eat her lunch.
--- NOTE | 2018-10-12 16:20 | NUR ---
PM GROUP/MOVIE/LEISURE SKILLS PT ATTENDED AND PARTICIPATED TO BEST OF ABILITY. PT OFTEN NEEDING REDIRECTION/REORIENTATION TO SITUATION. PT CONFUSED BUT DID NOT EXPRESS ANY AGITATION AT THIS TIME. PT WILL CONTINUE TO ATTEND AN DPARTICIPATE IN FUTURE GROUP SESSIONS.
[2018-10-12 20:00] VITALS: BP 112/87
--- NOTE | 2018-10-12 20:00 | NUR ---
UPDATED ON PATIENTS RECENT BSG 434, PT ASYMPTOMATIC. NO NEW ORDERS RECIEVED.
--- NOTE | 2018-10-12 22:54 | NUR ---
P-CONFUSION, ST/LT MEMORY DEFICITS. I-ASSESS ORIENTATION, MOOD, AND BEHAVIOR. REORIENT AND REDIRECT NEEDED. PROVIDE 1:1 FOR PATIENT TO VOICE FEELINGS. ENCOURAGE MEDICATION COMPLIANCE AND EDUCATE. R-PATIENT ALERT TO SELF, CONFUSED IN ALL OTHER AREAS. MOOD HOPELESS/HELPLESS, ANXIOUS AT TIMES. MEMORY DEFICITS NOTED PT REQUIRES FREQUENT REORIENTATION DURING INTERACTIONS WITH STAFF, MILD AGITATION NOTED WITH REDIRECTION. PT COMPLIANT WITH HS SNACK AND HS MEDICATION PASS, UNABLE TO EDUCATE DUE TO COGNITON. PT DENIES SI/HI AND HALLUCINATIONS, NO NOTED RESPONDING TO INTERNAL STIMULI. NO PARANOIA/DELUSIONS OBSERVED. NO PHYSICAL COMPLAINTS VOICED. PT CURRENTLY IN ROOM LAYING DOWN, RESPIRATIONS EASY AND REGULAR, NO SIGNS OR SYMPTOMS OF DISTRESS NOTED. P-REORIENT AND REDIRECT NEEDED. PROVIDE 1:1 FOR PATIENT TO VOICE FEELINGS. ENCOURAGE MEDICATION COMPLIANCE. MAINTAIN Q 15 MIN CHECKS.
--- NOTE | 2018-10-12 23:16 | NUR ---
24 HOUR CHART CHECK COMPLETED.
--- NOTE | 2018-10-13 01:21 | NUR ---
PT INCREASINGLY CONFUSED WITH AGITATION NOTED, PACING AROUND ROOM AND HALLWAY STATING "I NEED TO GET MY MONEY TO GET IN HERE, I NEED TO GET TO THE BANK, I DONT KNOW WHY YOU GUYS WONT LET ME HELP". ATTEMPTS TO REDIRECT AND REORIENT INEFFECTIVE, GAIT UNSTEADY, PT PLACED IN NAHOMY CHAIR NEAR NURSES STATION FOR SAFETY DUE TO LACK OF AWARENESS. WILL CONTINUE TO MONITOR FOR ESCULATING BEHAVIORS.
--- NOTE | 2018-10-13 01:44 | NUR ---
BSG CHECKED PER NURSING JUDGEMENT WITH A RESULT OF 64, PT ASYMPTOMATIC. CURRENTLY SITTING UP IN DINING ROOM EATING SNACK PROVIDED WITH ORANGE JUICE.
--- NOTE | 2018-10-13 02:49 | NUR ---
BSG RECHECKED SINCE RECIEVING SNACK WITH RESULT OF 277, PT ASYMPTOMATIC.
--- NOTE | 2018-10-13 06:44 | NUR ---
PATIENT OBSERVED ON Q 15 MIN CHECKS TO HAVE SLEPT APPROX 0 HOURS THROUGHOUT THE NIGHT DESPITE MULIPLE REDIRECTION ATTEMPTS AND THERAPEUTIC INTERVENTIONS, PT CONTINUES TO BELIEVE SHE NEEDS TO GO TO THE BANK OR HER MOTHER AND FATHER ARE LOOKING FOR HER. NO SIGNS OR SYMPTOMS OF DISTRESS NOTED.
[2018-10-13 07:32] VITALS: BP 125/58
--- NOTE | 2018-10-13 07:45 | NUR ---
OT NOTE Pt was seen this A.M. 1:1 for 15 minute OT session with nursing staff present for observation only. Upon arrival pt was supine in bed. Pt identified by name and and had no complaints at this time. Pt transferred supine to sit EOB with SBA. While sitting EOB pt doffed gown with SBA and donned tshirt and sweater with set-upA. Functional mobility completed into the bathroom with CGA for safety due to unsteady balance upon inital rise. Pt transferred on/off standard commode with SBA and use of grab bar. Clothing management and toilet hygiene completed with CGA while standing. Pt then stood sink side while washing her hands with SBA. Functional mobility completed to the dining room with SBA and use of hand rail for UE support. There she was left sitting upright in the dining room under [facility] staff supervision. Continue with rec D/C plan to return to LTC. DEANA Evans/Patricia
--- NOTE | 2018-10-13 08:00 | NUR ---
Treatment Plan meeting with Dr. Haq, RN and Social Staff Worker. Plan for discharge Friday/. Family has requested patient dicharge to [facility] at Discharge instead of [facility]. Workin with facilities to transition.
--- NOTE | 2018-10-13 10:20 | NUR ---
PHYSICAL THERAPY Patient seen this am for therapy visit and was sitting in activity room chair upon therapist arrival. Several [facility] staff members were present during SOFTWARE DEVELOPMENT COORDINATOR visit this morning as patient voices no new c/o's. Patient transfers sit to stand CGA and ambulates CRAFT WORKER/CGA, 100'x 1, demonstrating slow, steady margareth. Patient reports increased c/o of mid, low back pain > 75 feet and stated she needed to sit down. Patient returned to activity room chair with mild fatigue and remained in chair under [facility] staff Supervision. No LOB observed this session and will continue per POC as tolerated. Total treatment time 13 minutes. Justin Saavedra, SOFTWARE DEVELOPMENT COORDINATOR
--- NOTE | 2018-10-13 13:00 | NUR ---
DR. EMERY ON UNIT TO ASSESS PATIENT.
--- NOTE | 2018-10-13 13:30 | NUR ---
Spoke with Zhanna At [facility]. She has not received the Level 2 review and letter from [facility]. Call placed to [facility] and Advised Jyoti in Non Destructive Tester that [facility] and letter will need to be faxed to [facility] for pt. to transition to [facility].
--- NOTE | 2018-10-13 16:07 | NUR ---
Call Placed to [facility] and advised GILA Montes that Sig Change PASRR is needed for pt. to transfer to [facility]. Jyoti Fax Sig Change Dated for Jun 2018. Call placed back to [facility] and Advised Jyoti that Sig Change Resident Review needed for this admit to Psychiatric unit. Jyoti states that she will submit today. Fax received with Sig Change PASRR but still waiting on approval Letter.
--- NOTE | 2018-10-13 17:33 | NUR ---
PATIENT IS ALERT AND ORIENT TO PERSON WITH CONFUSION; ABLE TO VOICE NEEDS. MEMORY DEFICITS NOTED. MOOD IS STABLE, PLEASANT DEMEANOR. DENIES ANY HALLUCINATIONS, DELUSIONS, HI/SI OR PAIN. INTERACTIVE WITH STAFF AND OTHER PATIENTS. PARTICIPATED IN GROUP SESSIONS. 1 PERSON VERBAL CUEING WITH ACTIVITIES OF DAILY LIVING, CONTINENT OF BOWEL AND BLADDER. SET UP FOR MEALS INTAKES ARE GOOD WITH ADEQUATE FLUIDS. AMBULATORY WITH STEADY GAIT. MEDICATION COMPLAINT. Q 15 MINUTE SAFETY CHECKS. NO AGGRESSION NOTED. CONTINUE TO MONITOR FOR AGGRESSION; PROVIDE ONE ON ONE AND REDIRECTION NEEDED.
[2018-10-13 20:05] VITALS: BP 129/80
--- NOTE | 2018-10-13 20:06 | NUR ---
PT SITTING IN DAY ROOM AT THIS TIME. PLEASANTLY CONFUSED. VITALS STABLE. RESPS EASY AND EVEN ON ROOM AIR.
--- NOTE | 2018-10-13 20:15 | NUR ---
MADE AWARE OF BSG CR 355, STATES TO GIVE HS LANTUS AND SS COVERAGE "AND REMEASURE IN A COUPLE HOURS." PT ASYMPTOMATIC. SITTING IN DAY ROOM INTERACTING WITH STAFF.
--- NOTE | 2018-10-13 21:25 | NUR ---
Pt ate 100% of snack. Resting in bed at this time.
--- NOTE | 2018-10-13 21:28 | NUR ---
P-ST/LT MEMORY DEFICITS. UNABLE TO VERBALIZE ANY SENSICAL ANWSERS RELATED TO ORIENTATION. I-MOST NEEDS AND WANTS ANTICIPATED BY STAFF DUE TO COGNITION. FREQUENT REORIENTATION T/O THE SHIFT AND NEEDED. R-REMAINS PLEASANTLY CONFUSED PER USUAL. REORIENTATION INEFFECTIVE DUE TO SEVERE SHORT TERM MEMORY DEFICITS. P-ENCOURAGE GROUPS
--- NOTE | 2018-10-13 23:20 | NUR ---
REASSESSED BSG AT THIS TIME, BSG 149.
--- NOTE | 2018-10-14 03:44 | NUR ---
BSG 108 at this time.
--- NOTE | 2018-10-14 05:34 | NUR ---
PT ATE 100% OF HS SNACK AND SLEPT PAST 2200. REMAINS SLEEPING IN BED AT THIS TIME.
--- NOTE | 2018-10-14 07:28 | NUR ---
OT NOTE Pt was seen this A.M. 1:1 for 13 minute OT session with ABRASIVE GRINDER and nursing staff present for observation only. Upon arrival pt was supine in bed, pt identified by name and and had no complaints at this time. Pt transferred supine to sit EOB with SBA. While sitting EOB pt donned B socks with SBA. Functional mobility completed into the bathroom with Mary AUDITOR SUPERVISOR due to unsteady gait upon inital rise. Pt transferred on/off standard commode with CGA for safety. Clothing management completed with CGA and toilet hygiene completed with supervision while seated. Pt then stood sink side while washing her hands with CGA. Pt was left sitting upright in the dining room under [facility] staff supervision. Continue with rec D/C plan to return to LTC. DEANA Evans/Patricia
[2018-10-14 07:58] VITALS: BP 127/67
--- NOTE | 2018-10-14 08:00 | NUR ---
PHYSICAL THERAPY Patient seen this am for therapy visit and was sitting up in activity room chair upon therapist arrival. OT marketing operations assistant was present for observation only during FLATWORK FOLDER visit as patient reports no new c/o's this morning. Patient transfers sit to stand SBA and ambulates CITY TREASURER/CGA, 75' x 2, demonstrating very slow margareth and decreased stride. Patient still is a little unsteady with all 90/180 turns and starts to fatigue > 50 feet during gait, requireing seated rest break between gait trials. Patient returned to chair in activity room and remained under [facility] staff Supervision. Will continue per POC as tolerated, total treatment time 15 minutes. Justin Saavedra, FLATWORK FOLDER
--- NOTE | 2018-10-14 08:00 | NUR ---
Treatment Plan meeting with Dr. Haq, RN, AT, SW and Safety Associate. Plan for discharge Today if PASRR review Letter returns with Pt. approved for Nursing Facility Admission.
[2018-10-14] MEDS ORDERED: RIVASTIGMINE TAR3 M1 PO (09:44)
[2018-10-14] MEDS ORDERED: MEMANTINE HCL10 MG PO (09:45)
[2018-10-14] MEDS ORDERED: GABAPENTIN800 MG PO (09:45)
[2018-10-14] MEDS ORDERED: DULOXETINE HCL60 MG PO (09:45)
[2018-10-14] MEDS ORDERED: GABAPENTIN400 MG PO (09:45)
[2018-10-14] MEDS ORDERED: PALIPERIDONE ER3 MG PO (09:45)
[2018-10-14] MEDS ORDERED: DULOXETINE HCL30 MG PO (09:45)
[2018-10-14] MEDS ORDERED: ROZEREM8 MG PO (09:45)
--- NOTE | 2018-10-14 10:00 | NUR ---
Several phone calls to Jyoti URIOSTEGUI at [facility], [facility] and [facility] and Spoke with Ted Milligan. Jyoti submitted Resident Significant Change 10/13/18 and She states that there is no review Letter. Calls Placed to [facility] who state they are unable to see the SIG change in the computer and [facility] is unable to provide any assistance. Called Zhanna URIOSTEGUI at [facility] and spoke with her and she advised they are unable to accept patient without that letter. Advised Nurse and SW here on [facility] that patient cannot discharge until that letter is received from [facility].
--- NOTE | 2018-10-14 10:35 | NUR ---
Spoke with pt's daughter Ludy Page and provided update. Discussed discharge from [facility] to the [facility] and the necessary process for this.
--- NOTE | 2018-10-14 11:56 | NUR ---
SW here on Unit discussed with [facility] need for letter of review for pt. to discharge. They advised for Hospital to resubmit Resident review and fax supporting documentation to [facility]. Resident Review Sig Change done by Packing Machine Operator and Faxed to [facility] with Stat Review on Fax Cover Sheet.
--- NOTE | 2018-10-14 12:07 | NUR ---
DR. SALAS NOTIFIED OF PT'S BEDSIDE BLOOD GLUCOSE OF [address] SALAS STATED TO GIVE THE AMOUNT OF INSULIN THAT IS ON THE PT'S SLIDING SCALE.
--- NOTE | 2018-10-14 14:17 | NUR ---
PT IS PLEASANTLY CONFUSED WITH ST/LT MEMORY DEFICITS NOTED. PT IS ALERT TO PERSON ONLY. AFTER PT IS DONE EATING, PT FORGETS THAT SHE HAD JUST GOT DONE EATING AND STATES "MAN I HAVE NOT EATEN ALL DAY, CAN I GET SOMETHING TO EAT". REORIENT PATIENT THAT SHE ALREADY ATE AND TO TIME AND PLACE. REORIENTATION IS INEFFECTIVE AND THE PT FORGETS WITHIN MINUTES. PT'S MOOD HAS BEEN STABLE THUS FAR THIS SHIFT. PARTICIPATING AND INTERACTING IN GROUP. DENIES HALLUCINATIONS, DELUSIONS, SI/HI, OR PAIN AT THIS TIME. NO S/S OF INTERACTING WITH INTERNAL STIMULI. HAVE TO REMIND TO USE THE RESTROOM. AT TIMES WHEN PT GETS INTO THE RESTROOM, SHE FORGETS WHY SHE IS IN THERE. REDIRECTION NEEDED WITH ADLS AND CARE. GAIT STEADY WHILE AMBULATING. RESPIRATION EASY AND NONLABORED ON ROOM AIR. CONTINENT OF BOWEL AND BLADDER. MEDICATION COMPLIANT WITH NO DIFFICULTIES AND EDUCATION PROVIDED. Q15 MINUTE CHECKS MAINTAINED FOR SAFETY.
--- NOTE | 2018-10-14 14:43 | NUR ---
OCCUPATIONAL THERAPY CO-SIGN I approve of the Occupational Therapy notes written above. LORRAINE WILLAMS OTR/Patricia
--- NOTE | 2018-10-14 15:00 | NUR ---
DR. EMERY AND DR. SALAS ON FLOOR TO ASSESS PATIENT, UPDATE PROVIDED.
--- NOTE | 2018-10-14 15:29 | NUR ---
Spoke with Zhanna camp [facility]. Advised the Resident Review had been submitted by [facility] Artificial Pearl Maker and that Unit has not received results. Will contact her in the a.m. Discharge on Hold.
--- NOTE | 2018-10-14 18:12 | NUR ---
Shift chart check completed.
[2018-10-14 20:25] VITALS: BP 125/69
--- NOTE | 2018-10-14 20:43 | NUR ---
PT ENCOURAGED TO COME TO DAY ROOM FOR HS SNACK. PLEASANTLY CONFUSED PER USUAL. MEDICATION COMPLIANT WITHOUT DIFFICULTY. RESPS EASY AND EVEN ON ROOM AIR.
--- NOTE | 2018-10-15 06:35 | NUR ---
PT ATE 100% OF HS SNACK. SLEPT APPROXIMATELY 7HRS UNINTERRUPTED. SITTING AT DAY ROOM TABLE WITH PEERS. REQUESTED SOMETHING TO EAT BEFORE BREAKFAST. PT GIVEN SMALL CUP COTTAGE CHEESE AND HALF LUNCHMEAT SANDWHICH. RESPS EASY AND EVEN ON ROOM AIR. PLEASANTLY CONFUSED PER USUAL.
--- NOTE | 2018-10-15 07:30 | NUR ---
OT NOTE Pt was seen this A.M. 1:1 for 15 minute OT session with CHIP MACHINE OPERATOR and nursing staff present for observation only. Upon arrival pt was sitting upright in the dining room. Pt identified by name and and had complaints of 8/10 low back pain and increased fatigue. Functional mobility completed to her bedroom with CGA RESPIRATORY COORDINATOR and verbal prompts throughout for general safety awareness and slowing down due to being impulsive. Pt sat EOB while doffing/donning B socks and donning her sweater with SBA after set-up. Pt then stood sink side while brushing her hair with CGA for safety due to being unsteady while reaching overhead. Pt then transferred sit to supine with SBA. There she was left with [facility] staff notified. Continue with rec D/C plan to return to LTC. DEANA Evans/Patricia
--- NOTE | 2018-10-15 07:55 | NUR ---
PHYSICAL THERAPY Patient seen this am for therapy visit and was lying in bed upon therapist arrival. OT curriculum assistant principal was present for observation only during ENVIRONMENTAL SERVICES WORKER visit as patient reported feeling a little tired following OT treatment. Patient informed breakfast was being served as she immediately sat up EOB with SBA, transfering sit to stand Min A from low bed surface. Patient ambulated LITHOGRAPHIC PRESS OPERATOR/CGA 125'x 1, demonstrating very slow margareth and cautios gait pattern. Patient fatigues quickly, but reports no c/o's pain this session as she continued down the hallway to activity room. Patient demonstrates bouts of unsteady balance, especially when turning around 180 degrees and remained in activity room chair at table under [facility] staff Supervision. Will continue per POC as tolerated, total treatment time 14 minutes. Justin Saavedra, ENVIRONMENTAL SERVICES WORKER
[2018-10-15 07:59] VITALS: BP 123/69
--- NOTE | 2018-10-15 08:00 | NUR ---
PT AWAKE, ALERT, VERBAL AND PLEASANT. ATE BREAKFAST THEN RETURNED TO ROOM. ON UNIT TO SEE PT THIS AM, UPDATE GIVEN.
--- NOTE | 2018-10-15 08:00 | NUR ---
Treatment Plan meeting with Dr. Haq, RN, SW and Medical Reviewer. Plan for discharge Friday. Pt. is accepted at [facility] and will discharge when stable Friday.
--- NOTE | 2018-10-15 09:16 | NUR ---
PASRR returns. Pt. has been ruled out and Does not require Further Review. Patient May Enter Nursing Facility. Pt. is accepted at [facility] and is a possible discharge today.
--- NOTE | 2018-10-15 10:02 | NUR ---
Left Message for Zhanna URIOSTEGUI at [facility] to notify of Plans to discharge Friday. Left Voice Message for Pt. Daughter Ludy to Notify of plans to discharge tom.
--- NOTE | 2018-10-15 11:49 | NUR ---
AND ON UNIT TO SEE PT AT THIS TIME.
--- NOTE | 2018-10-15 18:03 | NUR ---
SHIFT CHART CHECK COMPLETED.
[2018-10-15 20:00] VITALS: BP 112/62
--- NOTE | 2018-10-15 21:48 | NUR ---
Patient alert to person only with confusion noted. ST/LT memory deficts noted. No SI/HI noted. No hallucinations noted at this time. Patient compliant with medications without any difficulty. Provided 1:1 with patient for emotional support and expression of feelings. Patient isolative to room except for HS snacks. Plan to encourage medication compliance. Continue to encourage group participation and continue to provide 1:1 for emotional support. Q 15 minute safety checks continued and maintained. See [facility] flowsheet for further documentation.
--- NOTE | 2018-10-16 00:19 | NUR ---
24 HR chart check completed.
--- NOTE | 2018-10-16 05:01 | NUR ---
Patient slept approx. 6 hours throughout shift. Q 15 minute safety checks continued and maintained.
[2018-10-16 07:17] VITALS: BP 113/58
--- NOTE | 2018-10-16 07:47 | NUR ---
PT AWAKE, ALERT, VERBAL AND PLEASANT, EATING BREAKFAST IN DINING ROOM WITH PEERS AT THIS TIME.
--- NOTE | 2018-10-16 08:00 | NUR ---
Treatment Plan meeting with Dr. Haq RN, and Applicator Sprayer. Plan for discharge today. Pt. came to the hospital from [facility] and family requested change of facility while patient here. Paperwork completed for transfer and Pt. will discharge to [facility] which is closer to her daughter. Pt. will receive follow up for Mental Health Services at facility 1 x month or PRN and Primary Care Services will also be provided at facility 1 x month or PRN. Transportation has been arranged and family notified of discharge.
--- NOTE | 2018-10-16 08:06 | NUR ---
ON UNIT TO SEE PT AT THIS TIME, UPDATE GIVEN.
[2018-10-16 09:30] VITALS: BP 110/62
--- NOTE | 2018-10-16 09:30 | NUR ---
NOTIFIED OF DISCHARGE FOR TODAY. ALSO MADE AWARE PT BP MANUALLY THIS AM 110/62 HR 80 - MADE AWARE PT DUE TO RECIEVE MORNING DOSES OF NORVASC 10MG, LOPRESSOR 12.5MG AND COZAAR 100MG. STATES TO HOLD FOR NOW, REPEAT BP IN 30 MINS AND CALL BACK WITH RESULT.
[2018-10-16 10:00] VITALS: BP 108/64
--- NOTE | 2018-10-16 10:08 | NUR ---
Pt discharging today [facility]. Follow-up will be with Dr Haq, visiting psychiatrist. While at [facility], pt's mood and behaviors improved. Pt was pleasant and cooperative with staff and peers at time of discharge. Pt's confusion and forgetfulness continues but pt is easily redirectable.
--- NOTE | 2018-10-16 10:38 | NUR ---
UPDATED WITH BLODO PRESSURE REASSESSMENT RESUL: 108/64. STATES TO HOLD NORVASC 10MG AND COZAAR 100MG. OK TO GIVE LOPRESSOR 12.5MG. READ BACK AND VERIFIED.
--- NOTE | 2018-10-16 10:49 | NUR ---
PRN TYLENOL 650MG PO GIVEN AT THIS TIME PER PT C/O LOW BACK PAIN, NOT RATED ON NUMERICAL PAIN SCALE. WILL MONITOR FOR EFFECTIVENESS.
--- NOTE | 2018-10-16 11:20 | NUR ---
Spoke with Zhanna camp [facility] and advised of discharge today. Faxed Discharge Paperwork and Copy of PASRR Sig Change and Auth Letter.
--- NOTE | 2018-10-16 11:25 | NUR ---
PHYSICAL THERAPY CO-SIGN I approve of the Phyical Therapy notes written above. ASHLEE MCDONALD PT
--- NOTE | 2018-10-16 11:30 | NUR ---
TYLENOL APPEARS EFFECTIVE. NO FURTHER COMPLAINTS AT THIS TIME.
--- NOTE | 2018-10-16 14:15 | NUR ---
AND ON UNIT TO SEE PT AT THIS TIME.
--- NOTE | 2018-10-16 14:30 | NUR ---
NURSE TO NURSE REPORT GIVEN TO [facility]. MED LIST FAXED TO FACILITY PER REQUEST.
--- NOTE | 2018-10-16 15:06 | NUR ---
PRN TYLENOL 650MG PO GIVEN AT THIS TIME PER PT C/O LOW BACK PAIN, NOT RATED ON NUMERICAL PAIN SCALE. WILL MONITOR FOR EFFECTIVENESS.
--- NOTE | 2018-10-16 17:52 | NUR ---
TYLENOL HAS BEEN EFFECTIVE. PT VOICES NO FURTHER COMPLAINTS OF PAIN AT THIS TIME.
--- NOTE | 2018-10-16 17:53 | NUR ---
P- PLEASANTLY CONFUSED. POOR ST/LT MEMORY. I- ORIENTATION, MOOD AND BEHAVIOR ASSESSED. ASSESSED PT FOR SI/HI, INTENT OR PLAN. ASSESSED PT FOR S/S HALLUCINATIONS, PARANOIA AND/OR DELUSIONS. MEDICATIONS ADMINISTERED PER PHYSICIAN'S ORDERS. ASSISTANCE WITH ADL CARE PROVIDED NEEDED. ENCOURAGED PT TO ATTEND AND PARTICIPATE IN [facility] GROUPS AND ACTIVITIES. R- PT IS ALERT AND ORIENTED TO SELF ONLY, OTHERWISE PT IS PLEASANTLY CONFUSED. EASILY REDIRECTED. RESPS EASY AND EVEN ON ROOM AIR. MOOD APPEARS STABLE THIS SHIFT, AFFECT APPROPRIATE. SPEECH IS WNL AND COHERENT, ABLE TO MAKE NEEDS KNOWN WITHOUT DIFFICULTY. PT DENIES SI/HI, INTENT OR PLAN. PT DENIES HALLUCINATIONS, NO RESPONSE TO INTERNAL STIMULI NOTED. NO PARANOIA OR DELUSIONS NOTED. PT IS CALM, PLEASANT AND COOPERATIVE THIS SHIFT, MEDICATION COMPLIANT WITHOUT DIFFICULTY. AMBULATES FREQUENTLY WITH STEADY GAIT. NO AGGRESSIVE BEHAVIORS THIS SHIFT. P- PLAN TO CONTINUE CURRENT TREATMENT, CONTINUE TO MONITOR MOOD AND BEHAVIORS. PROVIDE APPROPRIATE REORIENTATION, REDIRECTION AND 1:1 NEEDED. CONTINUE TO ENCOURAGE MEDICATION COMPLIANCE WELL GROUP ATTENDANCE AND PARTICIPATION. ASSIST PT IN PREPARING FOR HOSPITAL DISCHARGE THIS DATE.
--- NOTE | 2018-10-16 18:10 | NUR ---
SHIFT CHART CHECK COMPLETED.
--- NOTE | 2018-10-16 18:18 | NUR ---
PT DISCHARGED AT THIS TIME TO [facility] VIA [facility] WITH 2 HEAD GREENSKEEPER. ALL DISCHARGE INSTRUCTIONS WERE SENT WITH THE PT. ALL PERSONAL BELONGINGS WERE SENT WITH THE PT. CALL PLACED TO [facility], SPOKE TO NURSE GABINO, MADE AWARE PT HAS JUST LEFT, UPDATED WITH MOST RECENT BSGS: 76 AT DINNER AND THEN 231 AFTER DINNER IMMEDIATELY PRIOR TO LEAVING THE UNIT. ALSO MADE AWARE PT WAS GIVEN TYLENOL 650MG AROUND 3PM FOR C/O BACK PAIN. PT LEFT THE UNIT IN STABLE CONDITION AT 1818. CLINICAL RESEARCH TECHNICIAN PRESENT FOR DISCHARGE.
--- NOTE | 2018-10-19 07:45 | NUR ---
PHYSICAL THERAPY CO-SIGN I approve of the Phyical Therapy notes written above. ASHLEE MCDONALD PT
--- NOTE | 2018-10-19 08:01 | NUR ---
OCCUPATIONAL THERAPY CO-SIGN I approve of the Occupational Therapy notes written above. LORRAINE WILLAMS OTR/Patricia
== END 2018-10-16 18:18 | DRG 883 ==
LOC: 3N 15:45
PROVIDERS: ADMIT Psychiatry & Neurology Psychiatry
DX: F63.81 Intermittent explosive disorder (principal); F33.2 Major depressive disorder, recurrent severe without psychotic features; N30.00 Acute cystitis without hematuria; G30.9 Alzheimer's disease, unspecified; F02.80 Dementia in other diseases classified elsewhere, unspecified severity, without behavioral disturbance, psychotic disturbance, mood disturbance, and anxiety; D64.9 Anemia, unspecified; E11.65 Type 2 diabetes mellitus with hyperglycemia; I11.9 Hypertensive heart disease without heart failure; E11.42 Type 2 diabetes mellitus with diabetic polyneuropathy; I25.9 Chronic ischemic heart disease, unspecified; J44.9 Chronic obstructive pulmonary disease, unspecified; E78.5 Hyperlipidemia, unspecified; G47.00 Insomnia, unspecified; Z88.5 Allergy status to narcotic agent; E11.649 Type 2 diabetes mellitus with hypoglycemia without coma; Z79.4 Long term (current) use of insulin; Z79.899 Other long term (current) drug therapy